=== PATIENT | male | born 1960 | race Caucasian/White ===

== ENCOUNTER → 2017-06-20 | Outpatient (CLI) | payer BC ==
--- NOTE | 2017-06-20 22:45 | MR ---
EXAMINATION TYPE: MR knee LT wo con DATE OF EXAM: 06/20/2017 COMPARISON: NONE HISTORY: Left knee pain TECHNIQUE: Multiplanar, multisequence imaging of the left knee is performed without IV contrast. FINDINGS: MEDIAL MENISCUS: Anterior and posterior horns are intact without tear. LATERAL MENISCUS: Minimal increased signal may be within the posterior portion lateral meniscus. Mild increased signals within the medial portion anterior horn lateral meniscus. Communication of the art icular surfaces is not identified. CRUCIATE LIGAMENTS: The anterior and posterior cruciate ligaments are intact and unremarkable. COLLATERAL LIGAMENTS: There is mild increased signal adjacent to the medial collateral ligament mimi tible with mild strain. No interruption is evident. Lateral collateral ligament is intact. EXTENSOR MECHANISM: Visualized quadriceps and patellar tendons are intact. EFFUSION: There is a small to moderate joint effusion. POPLITEAL CYST: No popliteal/goldberg cyst. TRICOMPARTMENT SPACES: Preserved CARTILAGE: Normal BONE MARROW SIGNAL: There is a tiny cyst within the posterior medial portion of the lateral tibial pl ateau compatible with a small subchondral cyst. Signal through the brain bone is otherwise unremarkab le. OTHER: The vastus medialis oblique and the sartorius muscle has increased signal. This appears to fo llow the fluid type signal. Severe strain of the muscles should be considered. No abnormal fluid lidya ection to suggest hematoma is evident. Additionally, the Gracilis or Sartorius muscle may have some s train as well. Remaining muscular signal is normal. Superficial soft tissue swelling is not identifie d. IMPRESSION: Vastus medialis oblique muscle and the Gracilis or Sartorius muscle with increased signal compatible with severe strain. 2. Moderate strain medial collateral ligament. 3. Moderate joint effusion.
== END | disposition home or self-care (01) ==
LOC: RADMRIMAIN 20:29
PROVIDERS: ATTEND Orthopaedic Surgery
DX: S83.412A Sprain of medial collateral ligament of left knee, initial encounter (principal); M25.462 Effusion, left knee

== ENCOUNTER 2018-10-17 15:03 | Emergency (ER) | payer BC ==
[2018-10-17 15:40] VITALS: BP 165/68; PULSE 60; RESP 18; TEMP 98.2
--- NOTE | 2018-10-17 15:58 | XR ---
EXAMINATION TYPE: XR chest 2V DATE OF EXAM: 10/17/2018 COMPARISON: 12/04/2013 HISTORY: Chest pain after injury. TECHNIQUE: Frontal and lateral views of the chest are obtained. FINDINGS: Low lung volumes are somewhat low. This accentuates the pulmonary vasculature. There is no focal air space opacity, pleural effusion, or pneumothorax seen. The cardiac silhouette size is wit hin normal limits. The osseous structures are intact. Mild multilevel degenerative changes of the t horacic spine are noted. IMPRESSION: No acute cardiopulmonary process.
[2018-10-17] MEDS ORDERED: IBUPROFEN 800 MG TAB PO STA (16:09)
--- NOTE | 2018-10-17 16:13 | ED ---
General Adult HPI - General Chief complaint: Chest Pain Stated complaint: chest injury Time Seen by Provider: 10/17/18 15:51 Source: patient, RN notes reviewed Mode of arrival: ambulatory Limitations: no limitations - History of Present Illness Initial comments: Patient is an 57-year-old male presented to the emergency room today with a chief complaint of injury to chest wall that occurred approximately 2 hours ago. 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 Patient states isn't seeing any bruising or swelling. He does admit to pain over the lateral anterior aspect of his ribs. Patient states that pain is worse with certain movements. Patient denies any other complaints or symptoms. Patient denies any recent fever , chills, shortness of breath, chest pain, back pain, abdominal pain, nausea or vomiting, numbness or tingling, headaches or visual changes, or any other complaints. - Related Data Home Medications Medication Instructions Recorded Confirmed Atenolol [Tenormin] 25 mg PO DAILY 07/09/14 08/17/16 Atorvastatin [Lipitor] 20 mg PO DAILY 07/09/14 08/17/16 Clopidogrel [Plavix] 75 mg PO DAILY 07/09/14 08/17/16 Hydrochlorothiazide [Hydrodiuril] 25 mg PO DAILY 07/09/14 08/17/16 Linagliptin [Tradjenta] 5 mg PO DAILY 07/09/14 08/17/16 Lisinopril [Prinivil] 20 mg PO BID 07/09/14 08/17/16 Ezetimibe [Zetia] 10 mg PO DAILY 08/17/16 08/17/16 Ibuprofen [Motrin] 200 - 400 mg PO Q6H PRN 08/17/16 08/17/16 Insulin Detemir [Levemir Flextouch] 18 units SQ DAILY 08/17/16 08/17/16 metFORMIN HCL [Glucophage] 1,000 mg PO BID 08/17/16 08/17/16 Previous Rx's Medication Instructions Recorded Hydrocodone/Acetaminophen [Rockledge 1 each PO Q6HR PRN #12 tab 10/17/18 5-325] Ibuprofen [Motrin] 800 mg PO Q6HR #30 tab 10/17/18 Allergies Allergy/AdvReac Type Severity Reaction Status Date / Time No Known Allergies Allergy Verified 10/17/18 15:39 Review of Systems ROS Statement: Those systems with pertinent positive or pertinent negative responses have been documented in the HPI. ROS Other: All systems not noted in ROS Statement are negative. Past Medical History Past Medical History: Chest Pain / Angina, Diabetes Mellitus, Hypertension Additional Past Medical History / Comment(s): palpitations History of Any Multi-Drug Resistant Organisms: None Reported Past Surgical History: Heart Catheterization With Stent Past Anesthesia/Blood Transfusion Reactions: No Reported Reaction Date of Last Stent Placement:: 2012 Past Psychological History: No Psychological Hx Reported Smoking Status: Never smoker Past Alcohol Use History: Occasional Past Drug Use History: None Reported - Past Family History Sister(s) Family Medical History: Cancer General Exam - General Exam Comments Initial Comments: General: The patient is awake and alert, and does not appear acutely ill. Neck: The neck is suppl. Cardiovascular: There is a regular rate and rhythm. No murmur, rub or gallop is appreciated. Respiratory: Lungs are clear to auscultation, respirations are non-labored, breath sounds are equal. No wheezes, stridor, rales, or rhonchi. Gastrointestinal: Soft nontender. No bruising or ecchymosis. Musculoskeletal: Normal ROM. Patient tender to palpation over the anterior lateral lower ribs on the left. No Step-off or deformity. Strength 5/5. Sensation intact. Radial pulses equal bilaterally 2+. Neurological: A&O x 3. CN II-XII intact, There are no obvious motor or sensory deficits. Coordination appears grossly intact. Speech is normal. Skin: Skin is warm and dry and no rashes or lesions are noted. Psychiatric: Cooperative, appropriate mood & affect, normal judgment. Limitations: no limitations Course Vital Signs 10/17/18 15:37 Temperature 98.2 F Pulse Rate 60 Respiratory 18 Rate Blood Pressure 165/68 O2 Sat by Pulse 99 Oximetry Medical Decision Making - Medical Decision Making Patient's vitals are stable. His x-ray reviewed and shows no acute abnormality. No obvious displaced fracture. Patient is point tender to the lateral aspect of the left lower ribs. Patient will be treated with anti- inflammatories, pain medication for his symptoms. Patient will be given incentive spirometer. Patient advised to follow-up family physician return here to the emergency room symptoms increase worsen. Disposition Clinical Impression: Rib fracture Disposition: HOME SELF-CARE Condition: Good Instructions: Rib Fracture (ED) Additional Instructions: Please brace area and need to cough, sneeze, or with certain movements as discussed. Please use incentive spirometer as discussed. Please use pain medications as prescribed. Follow-up the family doctor the next 2 days. Return to the emergency room symptoms increase or worsen. Prescriptions: Hydrocodone/Acetaminophen [Rockledge 5-325] 1 each PO Q6HR PRN #12 tab PRN Reason: Pain Ibuprofen [Motrin] 800 mg PO Q6HR #30 tab Is patient prescribed a controlled substance at d/c from ED?: No Referrals: Jose L Stafford MD [Primary Care Provider] - 1-2 days Time of Disposition: 16:12
== END 2018-10-17 16:30 | disposition home or self-care (01) ==
LOC: EC 15:03
DX: S22.32XA Fracture of one rib, left side, initial encounter for closed fracture (principal); I10 Essential (primary) hypertension; E11.9 Type 2 diabetes mellitus without complications; Z79.4 Long term (current) use of insulin; Z79.02 Long term (current) use of antithrombotics/antiplatelets; Z79.899 Other long term (current) drug therapy; Z86.79 Personal history of other diseases of the circulatory system; Z95.5 Presence of coronary angioplasty implant and graft; W20.8XXA Other cause of strike by thrown, projected or falling object, initial encounter; Y93.89 Activity, other specified; Y92.009 Unspecified place in unspecified non-institutional (private) residence as the place of occurrence of the external cause
CPT/HCPCS: 71046; 99283

== ENCOUNTER 2019-11-15 07:58 | Day surgery (SDC) | payer BC ==
[2019-11-12 15:50] VITALS: BMI 28.7
--- NOTE | 2019-11-14 22:51 | HP ---
HISTORY AND PHYSICAL DATE OF SURGERY: 11/15/2019 Amado Hook is a 58-year-old patient seen with progressive right shoulder pain. We discussed options for treatment. He elected to proceed with arthroscopy. Consent was obtained. PAST MEDICAL HISTORY: 1. Hypertension. 2. Hyperlipidemia. 3. Insulin-dependent diabetes. PAST SURGICAL HISTORY: Cardiac catheterization. DAILY MEDICATIONS: 1. Atenolol. 2. Atorvastatin. 3. Hydrochlorothiazide. 4. Lisinopril. 5. Plavix. 6. Insulin. ALLERGIES: NONE. SOCIAL HISTORY: He denies tobacco use. PHYSICAL EVALUATION OF THE RIGHT SHOULDER: Flexion 100 degrees, abduction 90 degrees, external rotation 20 degrees with weakness. There is tenderness along the anterolateral acromion and rotator cuff insertion site. Impingement sign is positive at 90 degrees. Drop-arm sign is positive. His distal neurovascular exam is intact. RADIOGRAPHS: Radiographs were obtained revealing a type 2 anterior acromion, cystic changes of the greater tuberosity along with calcific tendinitis. IMPRESSION: 1. Right shoulder impingement with rotator cuff tear. 2. Right shoulder acromioclavicular joint osteoarthritis. 3. Right shoulder calcific tendinitis. 4. Hypertension. 5. Hyperlipidemia. 6. Insulin-dependent diabetes. PLAN: Right shoulder arthroscopy, subacromial decompression, rotator cuff repair, Elio procedure, debridement. MMODL / IJN: [id number] /
[~2019-11-15 07:58] MED LIST: DEXAMETHASONE SOD PHOSPHATE 10 MG/ML 1 ML VIAL IV ONE; HYDROmorphone 0.5 MG/0.5 ML SYRINGE IVP PRN; LACTATED RINGERS 1,000 ML IV SCH; MIDAZOLAM 2 MG/2 ML VIAL IV PRN; ONDANSETRON 4 MG/2 ML VIAL IVP ONE; SCOPOLAMINE 1.5MG/72HR PATCH TRANSDERM ONE
[2019-11-15 08:28] LABS: Glucose,Whole Blood 176 mg/dL (75-99)
[2019-11-15] MEDS ORDERED: LIDOCAINE 1% 20 ML VIAL (10MG/ML) FOR IV START INTRADERMA ONE (08:35)
[2019-11-15] MEDS ORDERED: fentaNYL (PF) 50 MCG/ML 2 ML AMP IV ONE (08:44)
[2019-11-15] MEDS ORDERED: LIDOCAINE 1% INJ 10MG/ML (20 ML MDV) ONE (09:06)
[2019-11-15] MEDS ORDERED: LIDOCAINE 2%-EPI 1:100,000 20 ML VIAL ONE (09:06)
[2019-11-15] MEDS ORDERED: DEXAMETHASONE SOD PHOSPHATE 4 MG/ML 1 ML VIAL ONE (09:06)
[2019-11-15] MEDS ORDERED: PROPOFOL 10 MG/ML 20 ML VIAL IV ONE (09:06)
[2019-11-15] MEDS ORDERED: ROPIVACAINE 5 MG/ML 30 ML VIAL ONE (09:06)
[2019-11-15] MEDS ORDERED: SUCCINYLCHOLINE CHLORIDE 100 MG/5 ML SYR IV ONE (09:06)
[2019-11-15] MEDS ORDERED: fentaNYL (PF) 50 MCG/ML 2 ML AMP ONE (09:06)
[2019-11-15] MEDS ORDERED: ePHEDrine SULFATE/0.9% NACL/PF 50 MG/5 ML SYRINGE IV ONE (09:06)
[2019-11-15] MEDS ORDERED: LACTATED RINGERS 1,000 ML IV ONE (10:20)
[2019-11-15 10:59] VITALS: TEMP 97
--- NOTE | 2019-11-15 10:59 | P.OP ---
Date of Procedure: 11/15/19 Preoperative Diagnosis: Right shoulder impingement Postoperative Diagnosis: 1. Right shoulder rotator cuff tear 2. Right shoulder impingement 3. Right shoulder acromioclavicular joint osteoarthritis 4. Right shoulder partial long head biceps tear Procedure(s) Performed: 1. Right shoulder arthroscopic rotator cuff repair 2. Right shoulder arthroscopic subacromial decompression 3. Right shoulder arthroscopic Elio procedure 4. Right shoulder arthroscopic biceps tenotomy Implants: 24.75 Arthrex swivel lock anchors Anesthesia: GETA, regional (Interscalene block) Surgeon: Bishnu Ledezma Psychiatric Nurse #1: Hussein King Estimated Blood Loss (ml): 10 Pathology: none sent Condition: stable Disposition: PACU Indications for Procedure: 58-year-old patient seen with progressive right shoulder pain. After having t reatment options discussed, he elected to proceed with arthroscopy. Operative Findings: see description of procedure Description of Procedure: Patient underwent an interscalene block by department of anesthesia for postoperative pain management. The patient was then taken to the operative suite. The patient underwent a general anesthetic by the department of anesthesia. The patient was placed into a lateral position and secured. There was appropriate padding of the bony prominence. Right shoulder was then prepped and draped in normal sterile orthopedic fashion. We placed the extremity in 10 pounds of longitudinal traction. A posterior incision was now made for a posterior working portal site. The trocar and cannula were inserted into the glenohumeral joint. Arthroscopy was initiated. Spinal needle was now inserted anteriorly, to ascertain the anterior working portal site. An incision was now made in that area, a trocar was inserted followed by a probe. There was some partial tearing of the long head biceps tendon. There was some mild fraying of the superior labrum. There were mild grade 1 chondromalacia changes of the glenohumeral joint. I performed an arthroscopic biceps tenotomy. We again probed the labrum and it was stable. Instruments now removed from glenohumeral joint. Utilizing the posterior working portal site, the trocar and cannula were inserted into the subacromial space. Arthroscopy initiated. I made an incision 2 fingerbreadths lateral to the acromion. I introduced my trocar followed by my ArthroCare ablator. I now began ablating thick subacromial bursal tissue, which exposed the undersurface of the anterior acromion. There was diminished subacromial space. There was a very prominent anterior acromion. A motorized bur was introduced and a subacromial decompression was performed. I also excised some osteophytes off the inferior aspect of the distal clavicle. The AC joint was visualized and noted to be fairly arthritic. The motorized bur was introduced in the anterior portal site and a Elio procedure was performed without difficulty, decompressing the AC joint nicely. I turned my attention to the rotator cuff. There was an area anterior distal supraspinatus with obvious full-thickness perforation/rotator cuff tear. I debrided the margins irrigating down to stable tendon tissue the defect measured approximately 1 cm. I now probed more posteriorly and found the area of calcifications. That had eroded the rotator cuff tendon and I debrided that area. That was more posterior horn supraspinatus with about a 1.5 centimeters rotator cuff tear there. Both areas were thoroughly probed and I didn't appreciate additional calcifications. I abraded both footprints with a motorized bur. I passed 2 everted mattress sutures through good bites of rotator cuff tendon both anteriorly and superiorly with the assistance of Reza SRIVASTAVA. I now dressed the anterior tear. I punched the hole in the footprint area. I passed all 4 limbs of suture through a 4.75 Arthrex swivel lock anchor. I introduced the eyelit into the pre-punched hole. Reza SRIVASTAVA tension the sutures and then deployed the anchor with good fixation noted. I performed the same repair with Reza SRIVASTAVA's assistance to the posterior tear. All residual suture limbs were now clipped. We had good compression of the tendon along the entire footprint both anteriorly and posteriorly. I injected 1 ml Renyte intra-articular. Instruments now removed from the portal sites. All portal sites were approximated with nylon suture. Sterile dressings were applied followed by a shoulder immobilizer. Hussein SRIVASTAVA assisted in this complex case. The patient was awakened, transferred to a bed, and taken to recovery in stable condition.
[2019-11-15 11:15] VITALS: RESP 16
[2019-11-15 11:36] LABS: Glucose,Whole Blood 205 mg/dL (75-99)
[2019-11-15 12:31] VITALS: BP 132/74; PULSE 78
--- NOTE | 2019-11-19 14:35 | P.ANPRN ---
Procedure Note - Anesthesia - Nerve Block Performed Right Interscalene Single Time Out Performed: Yes Date of Procedure: 11/15/19 Procedure Start Time: 08:43 Procedure Stop Time: 08:50 Location of Patient: PreOp Indication: Acute Post-Operative Pain, Dx/Pain Location, Requested by Surgeon Sedation Type: Sedate with meaningful contact maintained Preparation: Sterile Prep Position: Supine Catheter: None Needle Types: Pajunk Needle Gauge: 21 Ultrasound used to visualize needle placement: Yes Ultrasound used to observe medication spread: Yes Injectate: 0.5% Ropivacaine (see comment for volume) (20ml) Blood Aspirated: No Pain Paresthesia on Injection Noted: No Resistance on Injection: Normal Image Stored and Saved: Yes Events: Uneventful and Well Tolerated
== END 2019-11-15 13:10 | disposition home or self-care (01) ==
LOC: OR 07:58
PROVIDERS: ATTEND Orthopaedic Surgery
DX: M75.121 Complete rotator cuff tear or rupture of right shoulder, not specified as traumatic (principal); M75.41 Impingement syndrome of right shoulder; M19.011 Primary osteoarthritis, right shoulder; M25.811 Other specified joint disorders, right shoulder; M94.211 Chondromalacia, right shoulder; M66.821 Spontaneous rupture of other tendons, right upper arm; M75.31 Calcific tendinitis of right shoulder; I10 Essential (primary) hypertension; I25.10 Atherosclerotic heart disease of native coronary artery without angina pectoris; E78.2 Mixed hyperlipidemia; E11.9 Type 2 diabetes mellitus without complications; Z79.4 Long term (current) use of insulin; Z79.02 Long term (current) use of antithrombotics/antiplatelets; Z79.899 Other long term (current) drug therapy; Z82.49 Family history of ischemic heart disease and other diseases of the circulatory system
CPT/HCPCS: 64415; 76942; 29827; 29826; 29824; C1713; Q4212; J2250; J1100 ×2; J0690; J2405; J2001; J3010; J2795; J0330; J2704

== ENCOUNTER 2020-03-04 20:26 | Observation (INO) | payer BC ==
[2020-03-04] MEDS ORDERED: SODIUM CHLORIDE 0.9% 1,000 ML IV STA (20:54)
--- NOTE | 2020-03-04 21:18 | ED ---
General Adult HPI - General Chief complaint: Shortness of Breath Stated complaint: Near syncope, dizziness Time Seen by Provider: 03/04/20 20:45 Source: patient, family Mode of arrival: wheelchair Limitations: no limitations - History of Present Illness Initial comments: Patient is a 59-year-old male, with history of diabetes, hypertension, presenting to emergency Department with complaints of a near syncopal episode as well as chest tightness that started today. 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 Patient initially thought his blood sugar might be low so he did eat a cupcake as well as drink orange juice and states he felt a little bit better. Patient also was having chest tightness. He states he felt like something was "sitting on his chest." Patient states he was able to go home and then decided to be seen in the ER since the chest tightness has not gone away. Patient states at this time his only complaint is a chest tightness. He denies any recent fever, chills. He denies being lightheaded, dizzy. He denies any abdominal pain, nausea, vomiting, diarrhea. He states he has not had a stress test in many years, he did have a heart cath performed in 2013. Patient has no other complaints at this time. Of note, patient had right shoulder surgery in October of this year. Upon arrival to the ER, his vital signs are stable. - Related Data Home Medications Medication Instructions Recorded Confirmed Clopidogrel [Plavix] 75 mg PO DAILY 07/09/14 11/15/19 Hydrochlorothiazide [Hydrodiuril] 25 mg PO DAILY 07/09/14 11/15/19 Lisinopril [Prinivil] 20 mg PO DAILY 07/09/14 11/15/19 Atenolol [Tenormin] 25 mg PO DAILY 10/17/18 11/15/19 Atorvastatin [Lipitor] 20 mg PO DAILY 10/17/18 11/15/19 Insulin NPH Hum/Reg Insulin Hm 20 unit SQ BID 10/17/18 11/15/19 [NovoLIN 70-30 100 UNIT/ML VIAL] Previous Rx's Medication Instructions Recorded HYDROcodone/APAP 7.5-325MG [Labadie 1 each PO Q6HR PRN #28 tab 11/15/19 7.5] Allergies Allergy/AdvReac Type Severity Reaction Status Date / Time No Known Allergies Allergy Verified 03/04/20 23:17 Review of Systems ROS Statement: Those systems with pertinent positive or pertinent negative responses have been documented in the HPI. ROS Other: All systems not noted in ROS Statement are negative. 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 HEAD: Atraumatic, normocephalic. EYES: Pupils equal round and reactive to light, extraocular movements intact, sclera anicteric, conjunctiva are normal. ENT: TMs normal, nares patent, oropharynx clear without exudates. Moist mucous membranes. NECK: Normal range of motion, supple without lymphadenopathy or JVD. LUNGS: Breath sounds clear to auscultation bilaterally and equal. No wheezes rales or rhonchi. HEART: Regular rate and rhythm without murmurs, rubs or gallops. ABDOMEN: Soft, nontender, normoactive bowel sounds. No guarding, no rebound. No masses appreciated. : Deferred EXTREMITIES: Normal range of motion, no pitting or edema. No clubbing or cyanosis. NEUROLOGICAL: Cranial nerves II through XII grossly intact. Normal speech, normal gait. Patient's strength is 5 out of 5 in upper and lower extremities. PSYCH: Normal mood, normal affect. SKIN: Warm, Dry, normal turgor, no rashes or lesions noted. Limitations: no limitations Course Vital Signs 03/04/20 03/04/20 03/04/20 20:27 20:45 20:59 Temperature 97.7 F Pulse Rate 76 Pulse Rate [ 72 [employer] Rec[employer]iter ] Respiratory 20 Rate Blood Pressure 189/89 157/72 O2 Sat by Pulse 97 Oximetry 03/04/20 03/04/20 03/04/20 21:00 21:26 22:00 Temperature Pulse Rate 68 73 74 Pulse Rate [ [employer] ] Respiratory 20 18 20 Rate Blood Pressure 157/72 150/74 142/67 O2 Sat by Pulse 98 98 96 Oximetry EKG Findings - EKG Comments: EKG Findings:: Normal sinus rhythm, normal ECG, no signs of acute ischemia. Ventricular rate 75, P1 38, QTC 404. Medical Decision Making - Medical Decision Making Patient is a 59-year-old male here after feeling lightheaded and chest pressure prior to arrival. Patient's vital signs are stable. EKG shows no signs of acute ischemia. Workup today is normal including normal troponin, negative d- dimer. Chest x-ray shows no acute findings. Patient has been comfortable in the ER. Urine is pending. I discussed the patient given his symptoms I would like to admit him to observation for cardiac consult and continue troponins. Patient is in agreement with this. Patient was accepted by Dr. Monteiro. Covid testing is negative. - Lab Data Result diagrams: 03/04/20 21:00 03/04/20 21:00 Lab Results 03/04/20 03/04/20 03/04/20 Range/Units 21:00 21:00 21:00 WBC 7.9 (3.8-10.6) k/uL RBC 4.62 (4.30-5.90) m/uL Hgb 14.6 (13.0-17.5) gm/dL Hct 43.4 (39.0-53.0) % MCV 93.8 (80.0-100.0) fL MCH 31.7 (25.0-35.0) pg MCHC 33.8 (31.0-37.0) g/dL RDW 13.0 (11.5-15.5) % Plt Count 226 (150-450) k/uL Neutrophils % 67 % Lymphocytes % 23 % Monocytes % 6 % Eosinophils % 1 % Basophils % 1 % Neutrophils # 5.3 (1.3-7.7) k/uL Lymphocytes # 1.8 (1.0-4.8) k/uL Monocytes # 0.5 (0-1.0) k/uL Eosinophils # 0.1 (0-0.7) k/uL Basophils # 0.1 (0-0.2) k/uL PT 10.0 (9.0-12.0) sec INR 1.0 (<1.2) APTT 23.7 (22.0-30.0) sec D-Dimer 0.30 (<0.60) mg/L FEU Sodium 139 (137-145) mmol/L Potassium 4.1 (3.5-5.1) mmol/L Chloride 100 (98-107) mmol/L Carbon Dioxide 27 (22-30) mmol/L Anion Gap 12 mmol/L BUN 26 H (9-20) mg/dL Creatinine 1.00 (0.66-1.25) mg/dL Est GFR (CKD-EPI)AfAm >90 (>60 ml/min/1.73 sqM) Est GFR (CKD-EPI)NonAf 82 (>60 ml/min/1.73 sqM) Glucose 248 H (74-99) mg/dL Calcium 10.6 H (8.4-10.2) mg/dL Magnesium 1.2 L (1.6-2.3) mg/dL Total Bilirubin 0.7 (0.2-1.3) mg/dL AST 48 (17-59) U/L ALT 37 (4-49) U/L Alkaline Phosphatase 130 H (38-126) U/L Troponin I (0.000-0.034) ng/mL Total Protein 8.0 (6.3-8.2) g/dL Albumin 4.8 (3.5-5.0) g/dL Coronavirus (PCR) (Not Detectd) 03/04/20 03/04/20 Range/Units 21:00 22:35 WBC (3.8-10.6) k/uL RBC (4.30-5.90) m/uL Hgb (13.0-17.5) gm/dL Hct (39.0-53.0) % MCV (80.0-100.0) fL MCH (25.0-35.0) pg MCHC (31.0-37.0) g/dL RDW (11.5-15.5) % Plt Count (150-450) k/uL Neutrophils % % Lymphocytes % % Monocytes % % Eosinophils % % Basophils % % Neutrophils # (1.3-7.7) k/uL Lymphocytes # (1.0-4.8) k/uL Monocytes # (0-1.0) k/uL Eosinophils # (0-0.7) k/uL Basophils # (0-0.2) k/uL PT (9.0-12.0) sec INR (<1.2) APTT (22.0-30.0) sec D-Dimer (<0.60) mg/L FEU Sodium (137-145) mmol/L Potassium (3.5-5.1) mmol/L Chloride (98-107) mmol/L Carbon Dioxide (22-30) mmol/L Anion Gap mmol/L BUN (9-20) mg/dL Creatinine (0.66-1.25) mg/dL Est GFR (CKD-EPI)AfAm (>60 ml/min/1.73 sqM) Est GFR (CKD-EPI)NonAf (>60 ml/min/1.73 sqM) Glucose (74-99) mg/dL Calcium (8.4-10.2) mg/dL Magnesium (1.6-2.3) mg/dL Total Bilirubin (0.2-1.3) mg/dL AST (17-59) U/L ALT (4-49) U/L Alkaline Phosphatase (38-126) U/L Troponin I <0.012 (0.000-0.034) ng/mL Total Protein (6.3-8.2) g/dL Albumin (3.5-5.0) g/dL Coronavirus (PCR) Not Detected (Not Detectd) Disposition Clinical Impression: Chest pain, Light headed Disposition: ADMITTED IP TO THIS [facility] Condition: Stable Is patient prescribed a controlled substance at d/c from ED?: No Referrals: Jose L Stafford MD [Primary Care Provider] - 1-2 days Decision Date: 03/04/20 Decision Time: 22:50
[2020-03-04 21:21] LABS: Basophils # (A) 0.1 k/uL (0-0.2); Basophils % (A) 1 %; Eosinophils # (A) 0.1 k/uL (0-0.7); Eosinophils % (A) 1 %; HCT 43.4 % (39.0-53.0); HGB 14.6 gm/dL (13.0-17.5); Lymphocytes # (A) 1.8 k/uL (1.0-4.8); Lymphocytes % (A) 23 %; MCH 31.7 pg (25.0-35.0); MCHC 33.8 g/dL (31.0-37.0); MCV 93.8 fL (80.0-100.0); Mean Platelet Volume 7.3; Monocytes # (A) 0.5 k/uL (0-1.0); Monocytes % (A) 6 %; Neutrophils # (A) 5.3 k/uL (1.3-7.7); Neutrophils % (A) 67 %; Platelet Count 226 k/uL (150-450); RBC 4.62 m/uL (4.30-5.90); WBC 7.9 k/uL (3.8-10.6)
[2020-03-04 21:33] LABS: ALT 37 U/L (4-49); AST 48 U/L (17-59); African American GFR (CKD) >90 (>60 ml/min/1.73 sqM); Albumin 4.8 g/dL (3.5-5.0); Alkaline Phosphatase 130 U/L (38-126); Anion Gap 12 mmol/L; Blood Urea Nitrogen 26 mg/dL (9-20); Calcium 10.6 mg/dL (8.4-10.2); Carbon Dioxide 27 mmol/L (22-30); Chloride 100 mmol/L (98-107); Glucose 248 mg/dL (74-99); Magnesium 1.2 mg/dL (1.6-2.3); Non-African American GFR(CKD) 82 (>60 ml/min/1.73 sqM); Potassium 4.1 mmol/L (3.5-5.1); Sodium 139 mmol/L (137-145); Total Bilirubin 0.7 mg/dL (0.2-1.3)
--- NOTE | 2020-03-04 21:33 | XR ---
EXAMINATION TYPE: XR chest 2V DATE OF EXAM: 03/04/2020 COMPARISON: 10/17/2018 TECHNIQUE: PA and lateral views submitted. HISTORY: Chest pain FINDINGS: The lungs are clear and there is no pneumothorax, pleural effusion, or focal pneumonia. Stable asym metric prominence left anterior margin first rib. No overt failure. Limited inspiration. Arthropathy of the shoulders. Degenerative change of the spine. Somewhat coarsened central interstitium. IMPRESSION: 1. Coarsened central interstitium can be associated with reduced inspiration rather than viral or int erstitial pneumonitis correlate clinically..
[2020-03-04 21:46] LABS: D-Dimer 0.3 mg/L FEU (<0.60); Partial Thromboplastin Time 23.7 sec (22.0-30.0)
[2020-03-04] MEDS ORDERED: NITROGLYCERIN SL TABS 0.4 MG TAB SUBLINGUAL PRN (22:47)
--- NOTE | 2020-03-04 23:27 | P.HPIM ---
History of Present Illness H&P Date: 03/04/20 The patient is a 59-year-old male with a PMH of CAD status post 3 stents, type II DM, hypertension, and hyperlipidemia presented to the ED with complaints of sudden onset of chest discomfort and lightheadedness. The patient reports that his symptoms started roughly 2-1/2 hours prior to presentation, while he was working, not doing anything particularly exertional. He describes an 8 out of 10 substernal chest discomfort, nonradiating, constant, with no alleviating or exacerbating features, with associated palpitations. He initially thought that his symptoms were due to a low blood glucose, and proceeded to eat a cupcake and consume a glass orange juice, which did not alleviate his symptoms, at which time he started to come to the ED. He denied associated shortness of breath, nausea, vomiting, or diaphoresis. He reports this is his somewhat different from his previous MIs. He notes that he has been having intermittent palpitations for the past 1 month, though did not think much of it and did not seek any medical attention. Reports that he follows with certified real estate appraiser, Dr. Matthews at his clinic. He also denied fever, chills, abdominal pain, diarrhea, visual disturbances, weakness, numbness, or headaches. At time of interview, he reported that his pain had improved to a 2 out of 10. Upon presentation to the ED, the patient's BP was 189/89, pulse 76, RR 20, temp 97.7, and SpO2 97% on room air. Laboratory evaluation had revealed a 60 count of 7.9, hemoglobin 14.6, platelets 226, sodium 139, potassium 4.1, BUN 26, creatinine 1.00, glucose 248, troponin less than 0.012, and a magnesium of 1.2. EKG had revealed a normal sinus rhythm at [address]/T-wave changes noted. Chest x-ray was unremarkable. Review of Systems Pertinent positives and negatives as discussed in HPI, a complete review of systems was performed and all other systems are negative. 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 Past Anesthesia/Blood Transfusion Reactions: No Reported Reaction Date of Last Stent Placement:: 2012 Past Psychological History: No Psychological Hx Reported Smoking Status: Never smoker Past Alcohol Use History: None Reported Past Drug Use History: None Reported - Past Family History Sister(s) Family Medical History: Cancer Medications and Allergies Home Medications Medication Instructions Recorded Confirmed Type Clopidogrel [Plavix] 75 mg PO DAILY 07/09/14 03/04/20 History Hydrochlorothiazide [Hydrodiuril] 25 mg PO DAILY 07/09/14 03/04/20 History Lisinopril [Prinivil] 20 mg PO DAILY 07/09/14 03/04/20 History Atenolol [Tenormin] 25 mg PO DAILY 10/17/18 03/04/20 History Atorvastatin [Lipitor] 20 mg PO DAILY 10/17/18 03/04/20 History Insulin Aspart Protam & Aspart 20 unit SQ BID 03/04/20 03/04/20 History [NovoLOG MIX 70-30 Flexpen] Allergies Allergy/AdvReac Type Severity Reaction Status Date / Time No Known Allergies Allergy Verified 03/04/20 23:17 Physical Exam Vitals: Vital Signs Temp Pulse Pulse Resp BP Pulse Ox 03/04/20 22:00 74 20 142/67 96 03/04/20 21:26 73 18 150/74 98 03/04/20 21:00 68 20 157/72 98 03/04/20 20:59 157/72 03/04/20 20:45 72 03/04/20 20:27 97.7 F 76 20 189/89 97 Intake and Output 03/04/20 03/04/20 03/05/20 14:59 22:59 06:59 Other: Weight 77.111 kg General: non toxic, no distress, appears at stated age, overweight Derm: no unusual rashes/lesions no unusual ecchymoses, warm, dry Head: atraumatic, normocephalic, symmetric Eyes: EOMI, no lid lag, anicteric sclera, pupils equal round reactive to light ENT: Nose and ears atraumatic, no thrush, no pharyngeal erythema Neck: No thyromegaly, no cervical lymphadenopathy, trachea midline, supple Mouth: no lip lesion, mucus membranes moist Cardiovascular: S1S2 reg, no murmur, positive posterior tibial pulse bilateral, no edema, capillary refill less than 2 seconds Lungs: CTA bilateral, no rhonchi, no rales , no accessory muscle use Abdominal: soft, nontender to palpation, no guarding, no appreciable organomegaly, normal bowel sounds Ext: no gross muscle atrophy, muscle strength 5 out of 5 in all 4 extremities grossly, no contractures, Neuro: CN II-XI grossly intact, light touch intact all 4 extremities, finger to nose within normal limits, Psych: Alert, oriented, appropriate affect Results CBC & Chem 7: 03/04/20 21:00 03/04/20 21:00 Labs: Abnormal Lab Results - Last 24 Hours (Table) 03/04/20 Range/Units 21:00 BUN 26 H (9-20) mg/dL Glucose 248 H (74-99) mg/dL Calcium 10.6 H (8.4-10.2) mg/dL Magnesium 1.2 L (1.6-2.3) mg/dL Alkaline Phosphatase 130 H (38-126) U/L Assessment and Plan Plan: Chest pain, rule out ACS -Cardiac monitoring -Cardiology consult -Trend troponin -Continue with aspirin -Echocardiogram Type II DM with hyperglycemia -Insulin sliding scale and blood glucose monitoring Hypomagnesemia -Replace and monitor Hypertension, hyperlipidemia -Continue with home meds DVT prophylaxis -Heparin subq The patient is admitted with an anticipated less than 2 midnight stay for evaluation of chest pain CODE STATUS: Full Code Discussed with: Patient Anticipated discharge date: 1-[address]: Home A total of 35 minutes was spent on the care of this complex patient more than 50% of the time was spent in counseling and care coordination.
[2020-03-05] MEDS: MAGNESIUM SULFATE-D5W PMX 1 GM in DEXTROSE/WATER 1 100ML.BAG IVPB SCH ×5 (00:43→11:23)
[2020-03-05 00:44] LABS: Glucose,Whole Blood 189 mg/dL (75-99)
[2020-03-05] MEDS: HEPARIN SODIUM,PORCINE 5,000 UNIT/ML 1 ML VIAL SQ SCH ×4 (00:46→22:38)
[2020-03-05 03:47] LABS: Cholesterol 168 mg/dL (<200); HDL Cholesterol 49 mg/dL (40-60); LDL Cholesterol,Calculated 93 mg/dL (0-99); Triglycerides 131 mg/dL (<150)
[2020-03-05 05:13] LABS: African American GFR (CKD) >90 (>60 ml/min/1.73 sqM); Anion Gap 7 mmol/L; Blood Urea Nitrogen 20 mg/dL (9-20); Calcium 9.5 mg/dL (8.4-10.2); Carbon Dioxide 28 mmol/L (22-30); Chloride 104 mmol/L (98-107); Glucose 160 mg/dL (74-99); Magnesium 1.5 mg/dL (1.6-2.3); Non-African American GFR(CKD) >90 (>60 ml/min/1.73 sqM); Potassium 3.5 mmol/L (3.5-5.1); Sodium 139 mmol/L (137-145)
[2020-03-05 06:15] LABS: Glucose,Whole Blood 176 mg/dL (75-99)
[2020-03-05 06:28] LABS: Appearance,Urine Clear (Clear); Bilirubin,Urine Negative (Negative); Blood,Urine Negative (Negative); Color,Urine Light Yellow; Glucose,Urine (UA) Negative (Negative); Ketones,Urine Negative (Negative); Leukocyte Esterase,Urine Negative (Negative); Nitrite,Urine Negative (Negative); Protein,Urine Negative (Negative); Specific Gravity,Urine 1.014 (1.001-1.035); Urobilinogen,Urine <2.0 mg/dL (<2.0)
[2020-03-05] MEDS ORDERED: ASPIRIN 325 MG TAB PO SCH (09:00)
[2020-03-05] MEDS ORDERED: LISINOPRIL 20 MG TAB PO SCH (09:00)
[2020-03-05] MEDS: ATENOLOL 50 MG TAB PO SCH (09:32)
[2020-03-05] MEDS: ATORVASTATIN 20 MG TAB PO SCH (09:32)
[2020-03-05] MEDS: HYDROCHLOROTHIAZIDE 25 MG TAB PO SCH (09:33)
[2020-03-05] MEDS: CLOPIDOGREL 75 MG TAB PO SCH (09:33)
[2020-03-05] MEDS ORDERED: LISINOPRIL 20 MG TAB PO ONE (10:15)
--- NOTE | 2020-03-05 10:20 | P.CRDCN ---
History of Present Illness Consult date: 03/05/20 Requesting physician: Celi Monteiro Consult reason: sycope, chest pain Chief complaint: Dizziness and chest pressure History of present illness: This is a 59-year-old gentleman who used to see Dr. MORGAN Hodge in the office, he follows now with Dr. Pinzon. Patient has a history of coronary artery disease with prior RCA and LAD stenting, most recent cardiac catheterization was performed in 2013, prior stented areas did not reveal any significant obstructive disease, circumflex was okay, 40% lesion noted in the OM and 40-50% in the diagonal and medical therapy was advised at that time. Patient also has a history of diabetes, hypertension, hyperlipidemia, family history of premature coronary artery disease. Patient presented to the hospital with symptoms of dizziness, he states that he was operating a high low, became quite dizzy and was experiencing tightness in his chest. He states that when he stood up off of the high low he almost passed out. Chest x-ray on presentation here showed some coarse central interstitium, no acute changes. EKG showed normal sinus rhythm with no acute changes. Magnesium on admission 1.2, 1.5 this morning, troponins negative 2. White blood cell count 7.9, hemoglobin 14.6, platelet count 226. D-dimer 0.3. Sodium 139, potassium 3.5, BUN 20, creatinine 0.86. Blood pressure 177/66, 97% on room air. Patient recently underwent right shoulder repair in October 2019. He also states that his most recent cardiac catheterization was performed at [facility] approximately a year ago, he was told to not have any significantly obstructive disease at that time. Patient was seen and examined this morning by Dr. Medrano. We will increase his lisinopril to 40 mg, give him a dose now, given 40 mg again in the morning tomorrow we will schedule the patient for a Persantine Cardiolite stress test tomorrow once his blood pressure is optimized. 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 Past Anesthesia/Blood Transfusion Reactions: No Reported Reaction Date of Last Stent Placement:: 2012 Past Psychological History: No Psychological Hx Reported Smoking Status: Never smoker Past Alcohol Use History: None Reported Past Drug Use History: None Reported - Past Family History Sister(s) Family Medical History: Cancer Medications and Allergies Home Medications Medication Instructions Recorded Confirmed Type Clopidogrel [Plavix] 75 mg PO DAILY 07/09/14 03/04/20 History Hydrochlorothiazide [Hydrodiuril] 25 mg PO DAILY 07/09/14 03/04/20 History Lisinopril [Prinivil] 20 mg PO DAILY 07/09/14 03/04/20 History Atenolol [Tenormin] 25 mg PO DAILY 10/17/18 03/04/20 History Atorvastatin [Lipitor] 20 mg PO DAILY 10/17/18 03/04/20 History Insulin Aspart Protam & Aspart 20 unit SQ BID 03/04/20 03/04/20 History [NovoLOG MIX 70-30 Flexpen] Allergies Allergy/AdvReac Type Severity Reaction Status Date / Time No Known Allergies Allergy Verified 03/04/20 23:17 Physical Exam Vitals: Vital Signs Temp Pulse Pulse Resp BP BP Pulse Ox 03/05/20 08:00 98.1 F 67 16 177/79 97 03/05/20 04:00 97.9 F 60 12 131/60 96 03/05/20 00:00 16 164/73 03/04/20 23:18 98.1 F 66 16 172/76 97 03/04/20 23:00 97.8 F 81 20 161/80 97 03/04/20 22:00 74 20 142/67 96 03/04/20 21:26 73 18 150/74 98 03/04/20 21:00 68 20 157/72 98 03/04/20 20:59 157/72 03/04/20 20:45 72 03/04/20 20:27 97.7 F 76 20 189/89 97 Intake and Output 03/04/20 03/05/20 03/05/20 22:59 06:59 14:59 Intake Total 100 Balance 100 Intake: Intake, IV Titration 100 Amount Magnesium Sulfate-D5w Pmx 100 1 gm In Dextrose/Water 1 100ml.bag @ 100 mls/hr IVPB Q1H [facility] Rx#: [id number] Other: # Voids 1 Weight 77.111 kg 80.5 kg PHYSICAL EXAMINATION: GENERAL: 59-year-old gentleman in no acute distress at the time of examination HEENT: Head is atraumatic, normocephalic. Pupils equal, round. Sclera anicteric. Conjunctiva are clear. Mucous membranes of the mouth are moist. Neck is supple. There is no elevated jugular venous pressure. No carotid bruit is heard. HEART EXAMINATION: Heart S1, S2 normal. No murmur or gallop heard. CHEST EXAMINATION: Lungs are clear to auscultation and precussion. No chest wall tenderness is noted on palpation or with deep breathing. ABDOMEN: Soft, nontender. Bowel sounds are heard. No organomegaly noted. EXTREMITIES: 2+ peripheral pulses with no evidence of peripheral edema and no calf tenderness noted. NEUROLOGIC patient is awake, alert and oriented 3 . . Results 03/04/20 21:00 03/05/20 02:01 Cardiac Enzymes 03/04/20 03/04/20 03/05/20 Range/Units 21:00 21:00 02:01 AST 48 (17-59) U/L Troponin I <0.012 <0.012 (0.000-0.034) ng/mL 03/05/20 Range/Units 08:29 AST (17-59) U/L Troponin I 0.012 (0.000-0.034) ng/mL Coagulation 03/04/20 Range/Units 21:00 PT 10.0 (9.0-12.0) sec APTT 23.7 (22.0-30.0) sec Lipids 03/05/20 Range/Units 02:01 Triglycerides 131 (<150) mg/dL Cholesterol 168 (<200) mg/dL HDL Cholesterol 49 (40-60) mg/dL CBC 03/04/20 Range/Units 21:00 WBC 7.9 (3.8-10.6) k/uL RBC 4.62 (4.30-5.90) m/uL Hgb 14.6 (13.0-17.5) gm/dL Hct 43.4 (39.0-53.0) % Plt Count 226 (150-450) k/uL Comprehensive Metabolic Panel 03/04/20 03/05/20 Range/Units 21:00 02:01 Sodium 139 139 (137-145) mmol/L Potassium 4.1 3.5 (3.5-5.1) mmol/L Chloride 100 104 (98-107) mmol/L Carbon Dioxide 27 28 (22-30) mmol/L BUN 26 H 20 (9-20) mg/dL Creatinine 1.00 0.86 (0.66-1.25) mg/dL Glucose 248 H 160 H (74-99) mg/dL Calcium 10.6 H 9.5 (8.4-10.2) mg/dL AST 48 (17-59) U/L ALT 37 (4-49) U/L Alkaline Phosphatase 130 H (38-126) U/L Total Protein 8.0 (6.3-8.2) g/dL Albumin 4.8 (3.5-5.0) g/dL Current Medications Generic Name Dose Route Start Last Admin Trade Name Freq PRN Reason Stop Dose Admin Aspirin 81 mg 03/06/20 09:00 Aspirin PO DAILY [facility] Atenolol 25 mg 03/05/20 09:00 03/05/20 09:32 Tenormin PO 25 mg DAILY [facility] Administration Atorvastatin Calcium 20 mg 03/05/20 09:00 03/05/20 09:32 Lipitor PO 20 mg DAILY [facility] Administration Clopidogrel Bisulfate 75 mg 03/05/20 09:00 03/05/20 09:33 Plavix PO 75 mg DAILY [facility] Administration Heparin Sodium (Porcine) 5,000 unit 03/05/20 00:00 03/05/20 09:32 Heparin SQ 5,000 unit Q8HR [facility] Administration Hydrochlorothiazide 25 mg 03/05/20 09:00 03/05/20 09:33 Hydrodiuril PO 25 mg DAILY [facility] Administration Magnesium Sulfate/Dextrose 1 100 mls @ 100 mls/hr 03/05/20 10:00 gm/ IV Solution IVPB 03/05/20 11:59 Q1H [facility] Lisinopril 20 mg 03/05/20 09:00 03/05/20 09:33 Zestril PO 20 mg DAILY [facility] Administration Nitroglycerin 0.4 mg 03/04/20 22:47 Nitrostat SUBLINGUAL Q5M PRN Chest Pain Intake and Output 03/04/20 03/05/20 03/05/20 22:59 06:59 14:59 Intake Total 100 Balance 100 Intake: Intake, IV Titration 100 Amount Magnesium Sulfate-D5w Pmx 100 1 gm In Dextrose/Water 1 100ml.bag @ 100 mls/hr IVPB Q1H [facility] Rx#: [id number] Other: # Voids 1 Weight 77.111 kg 80.5 kg 03/04/20 21:00 03/05/20 02:01 EKG Interpretations (text) EKG shows normal sinus rhythm with no acute changes Assessment and Plan Plan: Assessment and plan #1 symptoms of dizziness and near syncope, possibly related to accelerated hypertension #2 symptoms of chest tightness, troponins are negative 2. EKG shows normal sinus rhythm with no acute changes. #3 coronary artery disease history with prior RCA and LAD stenting #4 diabetes #5 accelerated hypertension in a patient with history of hypertension #6 hyperlipidemia #7 hypomagnesemia Plan We will increase his dose of lisinopril to 40 mg daily, giving an additional 20 now. Optimize his blood pressure and schedule the patient for a Persantine stress test tomorrow. We will also replace the patient's potassium. Obtain a cath report from [facility] on [place] performed approximately a year ago. Obtain an echocardiogram with Doppler study and orthostatic heart rate and blood pressure every shift. Further recommendations to follow. DNP note has been reviewed, I agree with a documented findings and plan of care. Patient was seen and examined.
--- NOTE | 2020-03-05 10:57 | ECHOF ---
Referral Reason:chest pain MEASUREMENTS -------- HEIGHT: 167.6 cm WEIGHT: 80.3 kg BP: 131/60 RVIDd: 3.0 cm (< 3.3) IVSd: 1.3 cm (0.6 - 1.1) LVIDd: 3.7 cm (3.9 - 5.3) LVPWd: 1.3 cm (0.6 - 1.1) IVSs: 1.7 cm LVIDs: 2.7 cm LVPWs: 1.8 cm LA Diam: 3.9 cm (2.7 - 3.8) LAESV Index (A-L): 25.00 ml/m Ao Diam: 3.5 cm (2.0 - 3.7) AV Cusp: 2.3 cm (1.5 - 2.6) MV EXCURSION: 18.395 mm (> 18.000) MV EF SLOPE: 100 mm/s (70 - 150) EPSS: 0.6 cm MV E Woody: 1.04 m/s MV DecT: 157 ms MV A Woody: 0.75 m/s MV E/A Ratio: 1.38 FINDINGS -------- Sinus rhythm. This was a technically adequate study. The left ventricular size is normal. There is mild concentric left ventricular hypertrophy. Overa ll left ventricular systolic function is normal with, an EF between 60 - 65 %. The right ventricle is normal in size. Normal LA size by volume 22+/-6 ml/m2. The right atrium is normal in size. Interatrial and interventricular septum intact. The aortic valve is trileaflet and appears structurally normal. The mitral valve is normal. The tricuspid valve appears structurally normal. Trace/mild (physiologic) pulmonic regurgitation. The aortic root size is normal. Normal inferior vena cava with normal inspiratory collapse consistent with estimated right atrial pre ssure of 5 mmHg. There is no pericardial effusion. CONCLUSIONS -------- 1. Sinus rhythm. 2. This was a technically adequate study. 3. The left ventricular size is normal. 4. There is mild concentric left ventricular hypertrophy. 5. Overall left ventricular systolic function is normal with, an EF between 60 - 65 %. 6. The right ventricle is normal in size. 7. Normal LA size by volume 22+/-6 ml/m2. 8. The right atrium is normal in size. 9. Interatrial and interventricular septum intact. 10. The aortic valve is trileaflet and appears structurally normal. 11. The mitral valve is normal. 12. The tricuspid valve appears structurally normal. 13. Trace/mild (physiologic) pulmonic regurgitation. 14. The aortic root size is normal. 15. Normal inferior vena cava with normal inspiratory collapse consistent with estimated right atrial pressure of 5 mmHg. 16. There is no pericardial effusion. DIRECTOR OF COMPENSATION: Zoë Shrestha RDCS
[2020-03-05 11:22] LABS: Glucose,Whole Blood 172 mg/dL (75-99)
--- NOTE | 2020-03-05 15:18 | P.PN ---
Subjective Progress Note Date: 03/05/20 Principal diagnosis: Chest pain Patient was seen and examined. No acute events overnight. Patient reports resolution of his chest pain. He denies any shortness of breath or pal pitations. No nausea or vomiting. No fever or chills. Inquiring if stress test can be performed in the outpatient setting. Objective - Vital Signs Vital signs: Vital Signs Temp 97.8 F 03/05/20 11:51 Pulse 54 L 03/05/20 11:51 Resp 16 03/05/20 11:51 BP 139/67 03/05/20 11:51 Pulse Ox 97 03/05/20 11:51 Intake & Output 03/04/20 03/05/20 03/05/20 18:59 06:59 18:59 Intake Total 100 560 Balance 100 560 Weight 80.5 kg Intake: Intake, IV Titration 100 200 Amount Magnesium Sulfate-D5w Pmx 100 1 gm In Dextrose/Water 1 100ml.bag @ 100 mls/hr IVPB Q1H [facility] Rx#: [id number] Magnesium Sulfate-D5w Pmx 200 1 gm In Dextrose/Water 1 100ml.bag @ 100 mls/hr IVPB Q1H [facility] Rx#: [id number] Oral 360 Other: # Voids 1 - Exam General: [non toxic], [no distress], [appears at stated age] Derm: [warm], [dry] Head: [atraumatic], [normocephalic], [symmetric] Eyes: [EOMI], [no lid lag], [anicteric sclera] Mouth: [no lip lesion], [mucus membranes moist] Cardiovascular: [S1S2 reg], [no murmur], [positive DP pulse bilateral], Lungs: [CTA bilateral], [no rhonchi, no rales] , [no accessory muscle use] Abdominal: [soft], [ nontender to palpation], [no guarding], [no appreciable organomegaly] Ext: [no gross muscle atrophy], [no edema], [no contractures] Neuro: [no focal neuro deficits] Psych: [Alert], [oriented], [appropriate affect] - Labs CBC & Chem 7: 03/04/20 21:00 03/05/20 02:01 Labs: Abnormal Lab Results - Last 24 Hours (Table) 03/04/20 03/05/2003/05/20 Range/Units 21:00 00:43 02:01 BUN 26 H (9-20) mg/dL Glucose 248 H 160 H (74-99) mg/dL POC Glucose (mg/dL) 189 H (75-99) mg/dL Calcium 10.6 H (8.4-10.2) mg/dL Magnesium 1.2 L 1.5 L (1.6-2.3) mg/dL Alkaline Phosphatase 130 H (38-126) U/L 03/05/20 03/05/20 Range/Units 06:14 11:21 BUN (9-20) mg/dL Glucose (74-99) mg/dL POC Glucose (mg/dL) 176 H 172 H (75-99) mg/dL Calcium (8.4-10.2) mg/dL Magnesium (1.6-2.3) mg/dL Alkaline Phosphatase (38-126) U/L Assessment and Plan Assessment: Chest pain, rule out ACS -Cardiac monitoring -Cardiology consult, plans for stress test tomorrow -Troponins less than 0.0123 with EKG showing normal sinus rhythm -Continue with aspirin and beta kathrine along with Plavix -Echocardiogram shows EF 60-65% with mild concentric LVH Type II DM with hyperglycemia -Insulin sliding scale and blood glucose monitoring along with hypoglycemic precautions Hypomagnesemia -Replace and monitor Hypertension, hyperlipidemia -Continue with home meds DVT prophylaxis -Heparin subq [Patient admitted for chest pain. Plans for stress test tomorrow. Likely DC in 1-2 days.]
[2020-03-05 16:21] LABS: Glucose,Whole Blood 207 mg/dL (75-99)
[2020-03-05] MEDS: INSULIN ASPART (NovoLOG) 100 UNIT/ML VIAL SQ SCH ×2 (17:27→20:24)
[2020-03-05 20:09] LABS: Glucose,Whole Blood 201 mg/dL (75-99)
[2020-03-06] MEDS ORDERED: DIPYRIDAMOLE 46 MG in SODIUM CHLORIDE 0.9% 40.8 ML IV ONE (06:00)
[2020-03-06 06:08] LABS: Glucose,Whole Blood 170 mg/dL (75-99)
[2020-03-06] MEDS: INSULIN ASPART (NovoLOG) 100 UNIT/ML VIAL SQ SCH (06:30)
[2020-03-06 07:45] VITALS: BP 147/72; PULSE 50; RESP 16; TEMP 97.8
[2020-03-06] MEDS ORDERED: LISINOPRIL 20 MG TAB PO SCH (09:00)
[2020-03-06] MEDS ORDERED: ASPIRIN 81 MG PO SCH (09:00)
[2020-03-06] MEDS ORDERED: AMINOPHYLLINE 500 MG/20 ML VIAL IV ONE (09:55)
[2020-03-06] MEDS ORDERED: AMINOPHYLLINE 500 MG/20 ML VIAL IV PRN (10:00)
[2020-03-06] MEDS ORDERED: SODIUM CHLORIDE 0.9% IV ONE (10:00)
[2020-03-06] MEDS ORDERED: DIPYRIDAMOLE IV ONE (10:00)
[2020-03-06] MEDS ORDERED: CAFFEINE CITRATE 60 MG/3 ML VIAL IV PRN (10:00)
--- NOTE | 2020-03-06 11:00 | NM ---
EXAMINATION TYPE: NM stress persantine cardiolit DATE OF EXAM: 03/06/2020 COMPARISON: NONE HISTORY: Precordial chest pain and abnormal EKG TECHNIQUE: After the intravenous administration of 9.8 mCi Tc 99m Sestamibi - Cardiolite resting SPE CT images acquired 60 minutes post injection. The patient received 0.4mg Lexiscan, 24.5 mCi Tc 99m Sestamibi - Stress images obtained [address] injection FINDINGS: Review of stress and rest SPECT images demonstrates no distinct perfusion abnormality. Gated analysi s shows normal wall motion with an estimated left ventricular ejection fraction of 58 %. IMPRESSION: No scintigraphic evidence for reversible ischemia.
[2020-03-06] MEDS: ATENOLOL 50 MG TAB PO SCH (11:14)
[2020-03-06] MEDS: HEPARIN SODIUM,PORCINE 5,000 UNIT/ML 1 ML VIAL SQ SCH (11:14)
[2020-03-06] MEDS: HYDROCHLOROTHIAZIDE 25 MG TAB PO SCH (11:15)
[2020-03-06] MEDS: CLOPIDOGREL 75 MG TAB PO SCH (11:15)
[2020-03-06] MEDS: ATORVASTATIN 20 MG TAB PO SCH (11:15)
[2020-03-06 11:40] LABS: Glucose,Whole Blood 152 mg/dL (75-99)
--- NOTE | 2020-03-06 11:54 | P.STRESS ---
- Stress Test Note Stress Test Results/Findings: Exam Performed: NM stress persantine cardiolite Exam Date: 03/06/20 Reason for Exam: CP Height: 5 ft 6 in Weight: 78.8 kg Protocol: PERSANTINE CARDIOLITE Stage: NA Duration of Exercise: NA Resting Heart Rate: 51 Resting Blood Pressure: 169/72 Maximum Achieved Heart Rate: 70 Maximum Achieved Blood Pressure: 169/72 85% PMHR: 136 100% PMHR: 160 METS: NA Technologist Comment: Stress Test Results/Findings: This is a 59-year-old gentleman with history of hypertension, diabetes, and hypercholesteremia, and family history being evaluated for symptoms of chest pain. Stress data: Baseline EKG showed sinus rhythm with normal MD interval QRS duration. Blood pressure at rest was 169/72 with pulse rate of 51. A standard dose of Persantine was infused. EKGs taken during and after infusion did not reveal any significant changes from the baseline. Patient was given Aminophyllin for reversal at the end of the procedure. Final impression #1. Negative Persantine stress test #2. Report on nuclear images to be given by the radiologist
--- NOTE | 2020-03-06 11:56 | P.PN ---
Subjective Progress Note Date: 03/06/20 This is a 59-year-old gentleman who used to see Dr. MORGAN Hodge in the office, he follows now with Dr. Pinzon. Patient has a history of coronary artery disease with prior RCA and LAD stenting, most recent cardiac catheterization was performed in 2013, prior stented areas did not reveal any significant obstru ctive disease, circumflex was okay, 40% lesion noted in the OM and 40-50% in the diagonal and medical therapy was advised at that time. Patient also has a history of diabetes, hypertension, hyperlipidemia, family history of premature coronary artery disease. Patient presented to the hospital with symptoms of dizziness, he states that he was operating a high low, became quite dizzy and was experiencing tightness in his chest. He states that when he stood up off of the high low he almost passed out. Chest x-ray on presentation here showed some coarse central interstitium, no acute changes. EKG showed normal sinus rhythm with no acute changes. Magnesium on admission 1.2, 1.5 this morning, troponins negative 2. White blood cell count 7.9, hemoglobin 14.6, platelet count 226. D-dimer 0.3. Sodium 139, potassium 3.5, BUN 20, creatinine 0.86. Blood pressure 177/66, 97% on room air. Patient recently underwent right shoulder repair in October 2019. He also states that his most recent cardiac catheterization was performed at [facility] approximately a year ago, he was told to not have any significantly obstructive disease at that time. Patient was seen and examined this morning by Dr. Medrano. We will increase his lisinopril to 40 mg, give him a dose now, given 40 mg again in the morning tomorrow we will schedule the patient for a Persantine Cardiolite stress test to hills once his blood pressure is optimized. 03/06/2020 Patient underwent a Persantine Cardiolite stress test today that was negative for any reversible ischemia. Orthostatic blood pressures were obtained, 137/80 lying, 145/60 sitting, 147/70 standing, heart rate remained in the 50s throughout. Echocardiogram with Doppler study revealed a normal left ventricular systolic function. Objective - Vital Signs Vital signs: Vital Signs Temp 97.8 F 03/06/20 07:32 Pulse 50 L 03/06/20 07:32 Resp 16 03/06/20 07:32 BP 147/72 03/06/20 07:32 Pulse Ox 96 03/06/20 07:32 Intake & Output 03/05/20 03/06/20 03/06/20 18:59 06:59 18:59 Intake Total 800 0 Balance 800 0 Weight 78.8 kg 78.8 kg Intake: Intake, IV Titration 200 Amount Magnesium Sulfate-D5w Pmx 200 1 gm In Dextrose/Water 1 100ml.bag @ 100 mls/hr IVPB Q1H GEE Rx#: [id number] Oral 600 0 Other: Voiding Method Toilet # Voids 1 - Exam PHYSICAL EXAMINATION: GENERAL: 59-year-old gentleman in no acute distress at the time of examination HEENT: Head is atraumatic, normocephalic. Pupils equal, round. Sclera anicteric. Conjunctiva are clear. Mucous membranes of the mouth are moist. Neck is supple. There is no elevated jugular venous pressure. No carotid bruit is heard. HEART EXAMINATION: Heart S1, S2 normal. No murmur or gallop heard. CHEST EXAMINATION: Lungs are clear to auscultation and precussion. No chest wall tenderness is noted on palpation or with deep breathing. ABDOMEN: Soft, nontender. Bowel sounds are heard. No organomegaly noted. EXTREMITIES: 2+ peripheral pulses with no evidence of peripheral edema and no calf tenderness noted. NEUROLOGIC patient is awake, alert and oriented 3 . . - Labs CBC & Chem 7: 03/04/20 21:00 03/05/20 02:01 Labs: Abnormal Lab Results - Last 24 Hours (Table) 03/05/20 03/05/20 03/06/20 Range/Units 16:19 20:05 06:06 POC Glucose (mg/dL) 207 H 201 H 170 H (75-99) mg/dL 03/06/20 Range/Units 11:22 POC Glucose (mg/dL) 152 H (75-99) mg/dL Assessment and Plan Plan: Assessment and plan #1 symptoms of dizziness and near syncope, possibly related to accelerated hypertension #2 symptoms of chest tightness, troponins are negative 2. EKG shows normal sinus rhythm with no acute changes. #3 coronary artery disease history with prior RCA and LAD stenting #4 diabetes #5 accelerated hypertension in a patient with history of hypertension #6 hyperlipidemia #7 hypomagnesemia Plan Patient's blood pressure is under better control today, Persantine Cardiolite stress test negative for any reversible ischemia. May be discharged home from cardiology's perspective. DNP note has been reviewed, I agree with a documented findings and plan of care. Patient was seen and examined.
--- NOTE | 2020-03-06 15:05 | P.DS ---
Providers Date of admission: 03/04/20 23:13 Expected date of discharge: 03/06/20 Attending physician: Celi Monteiro MD Consults: 03/04/20 22:47 Consult Physician Urgent Consulting Provider: [facility] Consult Reason/Comments: chest pressure Do you want consulting provider notified?: Yes Primary care physician: Jose L [facility] Course: The patient is a 59-year-old male with a PMH of CAD status post 3 stents, type II DM, hypertension, and hyperlipidemia presented to the ED with complaints of sudden onset of chest discomfort and lightheadedness. Upon presentation to the ED, the patient's BP was 189/89, pulse 76, RR 20, temp 97.7, and SpO2 97% on room air. Laboratory evaluation had revealed a 60 count of 7.9, hemoglobin 14.6, platelets 226, sodium 139, potassium 4.1, BUN 26, creatinine 1.00, glucose 248, troponin less than 0.012, and a magnesium of 1.2. EKG had revealed a normal sinus rhythm at [address]/T-wave changes noted. Chest x-ray was unremarkable. Troponin was less than 0.0123 with EKG showing normal sinus rhythm and ACS was ruled out. Stress test was obtained by cardiology and was negative. Echocardiogram showed EF 60-65% with mild concentric LVH. His home medications were otherwise restarted for hypertension and dyslipidemia. He was started on insulin sliding scale for diabetes mellitus. Patient was seen and examined. He denies any chest pain, shortness of breath, palpitations or dizziness while currently at rest. Patient reports some chest discomfort during his stress test. The RN discussed this with the Cardiology FLAME CUTTING MACHINE OPERATOR, patient was cleared for discharge from a Cardiology perspective. General: [non toxic], [no distress], [appears at stated age] Derm: [warm], [dry] Head: [atraumatic], [normocephalic], [symmetric] Eyes: [EOMI], [no lid lag], [anicteric sclera] Mouth: [no lip lesion], [mucus membranes moist] Cardiovascular: [S1S2 reg], [no murmur], [positive DP pulse bilateral], Lungs: [CTA bilateral], [no rhonchi, no rales] , [no accessory muscle use] Abdominal: [soft], [ nontender to palpation], [no guarding], [no appreciable organomegaly] Ext: [no gross muscle atrophy], [no edema], [no contractures] Neuro: [no focal neuro deficits] Psych: [Alert], [oriented], [appropriate affect] Chest pain, rule out ACS -Cardiac monitoring -Cardiology consult, stress test negative, cardiology cleared the patient for discharge -Troponins less than 0.0123 with EKG showing normal sinus rhythm -Continue with aspirin and beta kathrine along with Plavix -Echocardiogram shows EF 60-65% with mild concentric LVH Type II DM with hyperglycemia -Insulin sliding scale and blood glucose monitoring along with hypoglycemic precautions Hypomagnesemia -Replace and monitor Hypertension, hyperlipidemia -Continue with home meds DVT prophylaxis -Heparin subq [Patient admitted for chest pain. Stress test negative. Follow-up with PCP within 3 days. Follow-up with primary manufacturing quality manager within 1 week.] Pertinent Studies: Chest x-ray, echocardiogram, stress test Patient Condition at Discharge: Stable Plan - Discharge Summary New Discharge Prescriptions: New Aspirin 81 mg PO DAILY #90 chew Nitroglycerin Sl Tabs [Nitrostat] 0.4 mg SUBLINGUAL Q5M PRN #14 tab PRN Reason: Chest Pain Continue Hydrochlorothiazide [Hydrodiuril] 25 mg PO DAILY Clopidogrel [Plavix] 75 mg PO DAILY Lisinopril [Prinivil] 20 mg PO DAILY Atorvastatin [Lipitor] 20 mg PO DAILY Atenolol [Tenormin] 25 mg PO DAILY Insulin Aspart Protam & Aspart [NovoLOG MIX 70-30 Flexpen] 20 unit SQ BID Discharge Medication List Clopidogrel [Plavix] 75 mg PO DAILY 07/09/14 [History] Hydrochlorothiazide [Hydrodiuril] 25 mg PO DAILY 07/09/14 [History] Lisinopril [Prinivil] 20 mg PO DAILY 07/09/14 [History] Atenolol [Tenormin] 25 mg PO DAILY 10/17/18 [History] Atorvastatin [Lipitor] 20 mg PO DAILY 10/17/18 [History] Insulin Aspart Protam & Aspart [NovoLOG MIX 70-30 Flexpen] 20 unit SQ BID 03/04/20 [History] Aspirin 81 mg PO DAILY #90 chew 03/06/20 [Rx] Nitroglycerin Sl Tabs [Nitrostat] 0.4 mg SUBLINGUAL Q5M PRN #14 tab 03/06/20 [Rx] Follow up Appointment(s)/Referral(s): Jose L Stafford MD [Primary Care Provider] - 1-2 days (2pm tuesdaymarch 07) Patient Instructions/Handouts: Chest Pain (DC) Activity/Diet/Wound Care/Special Instructions: FU with PCP within 3 days. FU with your primary Black Powder Glazing Operator within 1 week. Take all medications as advised. Come back to ED or call 911 for worsening chest pain, shortness of breath, palpitations, dizziness. Discharge Disposition: HOME SELF-CARE
== END 2020-03-06 12:21 | disposition home or self-care (01) ==
LOC: EC 20:26 → 3SCARD 23:13
PROVIDERS: ADMIT Internal Medicine; ATTEND Internal Medicine
DX: R07.89 Other chest pain (principal); R42 Dizziness and giddiness; R55 Syncope and collapse; R06.02 Shortness of breath; R00.2 Palpitations; I10 Essential (primary) hypertension; E78.5 Hyperlipidemia, unspecified; E11.65 Type 2 diabetes mellitus with hyperglycemia; E83.42 Hypomagnesemia; I25.2 Old myocardial infarction; M19.90 Unspecified osteoarthritis, unspecified site; Z20.828 Contact with and (suspected) exposure to other viral communicable diseases; I25.10 Atherosclerotic heart disease of native coronary artery without angina pectoris; Z95.5 Presence of coronary angioplasty implant and graft; Z79.02 Long term (current) use of antithrombotics/antiplatelets; Z79.899 Other long term (current) drug therapy; Z79.4 Long term (current) use of insulin; Z82.49 Family history of ischemic heart disease and other diseases of the circulatory system; Z80.9 Family history of malignant neoplasm, unspecified
CPT/HCPCS: 96365; 96366; 96372; 93005 ×3; 96361; 99285; 36415; 93017; 93306; 85379; 80061; 80053; 80048; 83735 ×2; 84484 ×2; 85025; 85610; 85730; 81003; 87635; 71046; 78452; G0378 ×3; A9500; J1644; J3475; J1245

== ENCOUNTER → 2020-11-12 | Outpatient (CLI) | payer BC ==
--- NOTE | 2020-11-12 08:40 | US ---
EXAMINATION TYPE: US renal artery duplex complete DATE OF EXAM: 11/12/2020 COMPARISON: NONE CLINICAL HISTORY: 59-year-old male I10 Renal hypertension, uncontrolled. TECHNIQUE: Multiple sonographic images of the kidneys are obtained. Color Doppler and spectral wavefo rm analysis of the renal vasculature. FINDINGS: MEASUREMENTS: RENAL SIZE: Rt Kidney: 13.3cm without hydronephrosis. Lt Kidney: not seen RESISTANCE INDEX Right: 0.74 Left: not seen RA/AO RATIO (< 3.5 ) Right: 1.7 Left: not seen RA VELOCITY ( < 180 cm/s) Right: 163 Left: not seen No evidence of renal artery stenosis. Brine Room Laborer notes: Right kidney measures large, left kidney not visualized in the left renal fossa or within the left side of the pelvis. A second hand polisher was brought in to double check. CF/LP IMPRESSION: 1. Unable to identify the left kidney. Correlate for any known diagnosis. Further cross-sectional kendall luation can be considered if this is an unexpected finding. The right kidney does measure slightly la rge and this could be due to compensatory hypertrophy. 2. No hydronephrosis on the right. No evidence for right renal artery stenosis by Doppler criteria.
[2020-11-12 08:45] LABS: Albumin 4.3 g/dL (3.5-5.0); Calcium 9.9 mg/dL (8.4-10.2); Potassium 5.2 mmol/L (3.5-5.1); Total Bilirubin 0.7 mg/dL (0.2-1.3); Total Protein 7.2 g/dL (6.3-8.2)
== END | disposition home or self-care (01) ==
LOC: RADUSWWP 07:15
PROVIDERS: ATTEND Internal Medicine
DX: N28.81 Hypertrophy of kidney (principal); I10 Essential (primary) hypertension; E11.9 Type 2 diabetes mellitus without complications
CPT/HCPCS: 80053; 82088; 83036; 84244; 93975

== ENCOUNTER 2022-11-04 11:14 | Emergency (ER) | payer BC ==
--- NOTE | 2022-11-04 11:39 | ED ---
URI HPI <Magali Merlos - Last Filed: 11/04/22 11:35> <Fly Hines - Last Filed: 11/04/22 15:47> <Bernice Personah Emigdio - Last Filed: 11/14/22 01:25> - General Stated Complaint: chest cold Time Seen by Provider: 11/04/22 15:05 - History of Present Illness Initial Comments: Patient is a 61-year-old male presenting to the emergency room with complaints of sore throat, headache, cough and congestion ongoing for approximately 1 week along with increase in chronic pain. He reports fevers and chills but does not have a thermometer so is unsure how highest admission was. Patient had one Covid vaccination approximately 1 year ago he is vaccinated for flu. He denies any known exposure for COVID or influenza. He was evaluated at urgent care earlier in the week and a Z-Bradly . He is currently on day 3 and reports no improvement in symptoms. He denies any abdominal pain, nausea, vomiting or diarrhea. (Magali Merlos) This is a 61-year-old male who presents emergency Department with bending of coughing for at least one week. Patient states he doesn't normally get short of breath Walking up steps and coughing. Patient states he has had a headache and some sore throat but he also complains of generalized body aches. Patient states today he started coughing and he had a little bit of blood come up so he decided to come into the emergency department. Patient states started been to the urgent care couple of days ago and started on a Z-Bradly but that is not helped his symptoms at all. Patient states he has had a fever in the past but didn't feel hot today. Patient denies any chest pain or palpitations. Patient denies any upper back pain. Patient denies any lightheadedness dizziness or near syn copal episode patient denies any leg swelling or calf tenderness. (Fly Hines) - Related Data Home Medications Medication Instructions Recorded Confirmed Clopidogrel [Plavix] 75 mg PO DAILY 07/09/14 11/04/22 Atorvastatin [Lipitor] 20 mg PO DAILY 10/17/18 11/04/22 Insulin Aspart Prot/Insuln Asp 22 unit SQ BID 03/04/20 11/04/22 [NovoLOG MIX 70-30 Flexpen] Azithromycin [Zithromax Z Pack] See Taper PO DIRECTED 11/04/22 11/04/22 lisinopriL [Zestril] 40 mg PO DAILY 11/04/22 11/04/22 Previous Rx's Medication Instructions Recorded Nitroglycerin Sl Tabs [Nitrostat] 0.4 mg SUBLINGUAL Q5M PRN #14 tab 03/06/20 Codeine Phosphate/Guaifenesin 10 ml PO Q6H 3 Days #120 ml 11/04/22 [Codeine Phosphate/Guaifenesin 10-100 mg/5 ml] Insulin Aspart Prot/Insuln Asp 24 unit SQ BID #10 each 11/04/22 [Novolog Mix 70-30 Flexpen] Allergies Allergy/AdvReac Type Severity Reaction Status Date / Time No Known Allergies Allergy Verified 11/04/22 15:29 Review of Systems ROS Other: All systems not noted in ROS Statement are negative. <Magali Merlos - Last Filed: 11/04/22 11:35> ROS Other: All systems not noted in ROS Statement are negative. <Fly Hines - Last Filed: 11/04/22 15:47> ROS Other: All systems not noted in ROS Statement are negative. <Reba Person - Last Filed: 11/14/22 01:25> ROS Statement: Those systems with pertinent positive or pertinent negative responses have been documented in the HPI. 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 Patient is nontoxic and well- hydrated and is in mild distress. ENT: Neck is soft and supple. No significant lymphadenopathy is noted. Oropharynx is clear. Moist mucous membranes. Neck has full range of motion without eliciting any pain. EYES: The sclera were anicteric and conjunctiva were pink and moist. Extraocular movements were intact and pupils were equal round and reactive to light. Eyelids were unremarkable. PULMONARY: Unlabored respirations. Good breath sounds bilaterally. No audible rales rhonchi or wheezing was noted. CARDIOVASCULAR: There is a regular rate and rhythm without any murmurs gallops or rubs. ABDOMEN: Soft and nontender with normal bowel sounds. SKIN: Skin is clear with no lesions or rashes and otherwise unremarkable. NEUROLOGIC: Patient is alert and oriented x3. Cranial nerves II through XII are grossly intact. Motor and sensory are also intact. Normal speech, volume and content. Symmetrical smile. MUSCULOSKELETAL: Normal extremities with adequate strength and full range of motion. No lower extremity swelling or edema. No calf tenderness. LYMPHATICS: No significant lymphadenopathy is noted PSYCHIATRIC: Normal psychiatric evaluation. (Fly Hines) Course Vital Signs 11/04/22 11/04/22 11/04/22 11:35 13:30 14:43 Temperature 98.1 F 99.4 F Pulse Rate 80 74 Respiratory 16 18 18 Rate Blood Pressure 156/87 116/75 O2 Sat by Pulse 98 95 Oximetry 11/04/22 11/04/22 19:33 20:40 Temperature 99.8 F H 98.2 F Pulse Rate 70 72 Respiratory 18 17 Rate Blood Pressure 151/79 141/80 O2 Sat by Pulse 97 97 Oximetry Medical Decision Making - Lab Data Result diagrams: 11/04/22 14:02 11/04/22 14:02 <Fly Hines - Last Filed: 11/04/22 15:47> - Lab Data Result diagrams: 11/04/22 14:02 11/04/22 14:02 <Reba Person - Last Filed: 11/14/22 01:25> - Medical Decision Making came back and was very concerned about his heart because she's had a stent before even though the patient came in complaining of cough and fever he did have some back pain starting 3 days ago and she asked if a cardiac workup could be done. EKG was interpreted by myself shows a sinus rhythm at 71 bpm KS interval 149 QRSs 88 QT interval 370 QTC is 394. Patient's EKG shows no ST segment elevation or depression. Was pt. sent in by a medical professional or institution ([facility], SHIRRER, urgent care, hospital, or senior care...) When possible be specific @ -No Did you speak to anyone other than the patient for history (EMS, parent, family, police, friend...)? What history was obtained from this source @ - gave some past medical history that he did not give us. Did you review nursing and triage notes (agree or disagree)? Why? @ -I reviewed and agree with nursing and triage notes Were old charts reviewed (outside hosp., previous admission, EMS record, old EKG, old radiological studies, urgent care reports/EKG's, senior care records)? Report findings @ -No old charts were reviewed Differential Diagnosis (chest pain, altered mental status, abdominal pain women, abdominal pain men, vaginal bleeding, weakness, fever, dyspnea, syncope, headache, dizziness, GI bleed, back pain, seizure, CVA, palpatations, mental health)? @ -Pneumonia, bronchitis, COVID, influenza, RSV, pulmonary embolism is is not all inclusive list EKG interpreted by me (3pts min.). @ -As above X-rays interpreted by me (1pt min.). @ -Chest x-rays interpreted by myself. Chest x-ray showed no acute normalities. CT interpreted by me (1pt min.). @ -None done U/S interpreted by me (1pt. min.). @ -None done What testing was considered but not performed or refused? (CT, X-rays, U/S, labs)? Why? @ -I considered doing a CAT scan of the chest however the patient's d-dimer is not elevated he is not having any pain currently and his main complaint was fever and cough What meds were considered but not given or refused? Why? @ -None Did you discuss the management of the patient with other professionals (professionals i.e. [facility] Paul, SHIRRER, lab, RT, psych nurse, 7th grade social studies teacher, photo technologist, teacher, motor equipment commanding officer, pillowcase sewer)? Give summary @ -No Was smoking cessation discussed for >3mins.? @ -No Was critical care preformed (if so, how long)? @ -No Were there social determinants of health that impacted care today? How? (Homelessness, low income, unemployed, alcoholism, drug addiction, transportation, low edu. Level, literacy, decrease access to med. care, [facility], rehab)? @ -No Was there de-escalation of care discussed even if they declined (Discuss DNR or withdrawal of care, Hospice)? DNR status @ -No What co-morbidities impacted this encounter? (DM, HTN, Smoking, COPD, CAD, Cancer, CVA, ARF, Chemo, Hep., AIDS, mental health diagnosis, sleep apnea, morbid obesity)? @ -Patient has diabetes hypertension and history of coronary artery disease so more extensive workup was done secondary to these comorbidities Dr. Doyle will be taking over the care of this patient at 3:30 PM (Marta Hines) Was patient admitted / discharged? @ -I took over care of the patient. He had been evaluated in the emergency department. IV was established. Laboratory studies were conducted. Patient had a viral swab performed as well as a chest x-ray. Upon return results the patient's did present to the emergency department requesting troponin testing. Troponin was added on. Results of the troponin were discussed with the patient. They were marginally elevated at 0.038. Because of this I did discuss the suggested treatment plan of admission with serial troponins however patient's did not want remain hospitalized. I was able to convince the patient into drawing a second set of laboratory studies before the patient was discharged. Second troponin does come back and is within normal limits. Patient would prefer to follow up with his senior controls engineer for the remainder of his workup. He is requesting something for cough. Patient given a prescription for codeine cough syrup. He is to follow-up with his doctor in 1-2 days and return for any new or worsening symptoms. Patient agreeable to this plan he was discharged home stable condition Undiagnosed new problem with uncertain prognosis? yes Drug Therapy requiring intensive monitoring for toxicity (Heparin, Nitro, Insulin, Cardizem)? no Were any procedures done? none Diagnosis/symptom? acute upper resp infection Acute, or Chronic, or Acute on Chronic? acute Uncomplicated (without systemic symptoms) or Complicated (systemic symptoms)? complicated Side effects of treatment? sedation from morphine Exacerbation, Progression, or Severe Exacerbation] no Poses a threat to life or bodily function? yes (Bernice Personah Emigdio) - Lab Data Lab Results 11/04/22 11/04/22 11/04/22 Range/Units 12:00 14:02 14:02 WBC 4.2 (3.8-10.6) k/uL RBC 5.09 (4.30-5.90) m/uL Hgb 16.0 (13.0-17.5) gm/dL Hct 45.6 (39.0-53.0) % MCV 89.6 (80.0-100.0) fL MCH 31.5 (25.0-35.0) pg MCHC 35.2 (31.0-37.0) g/dL RDW 12.5 (11.5-15.5) % Plt Count 201 (150-450) k/uL MPV 7.8 Neutrophils % 57 % Lymphocytes % 30 % Monocytes % 8 % Eosinophils % 1 % Basophils % 1 % Neutrophils # 2.4 (1.3-7.7) k/uL Lymphocytes # 1.3 (1.0-4.8) k/uL Monocytes # 0.3 (0-1.0) k/uL Eosinophils # 0.0 (0-0.7) k/uL Basophils # 0.0 (0-0.2) k/uL D-Dimer 0.55 (<0.60) mg/L FEU Sodium (137-145) mmol/L Potassium (3.5-5.1) mmol/L Chloride (98-107) mmol/L Carbon Dioxide (22-30) mmol/L Anion Gap mmol/L BUN (9-20) mg/dL Creatinine (0.66-1.25) mg/dL Est GFR (CKD-EPI)AfAm (>60 ml/min/1.73 sqM) Est GFR (CKD-EPI)NonAf (>60 ml/min/1.73 sqM) Glucose (74-99) mg/dL Calcium (8.4-10.2) mg/dL Total Bilirubin (0.2-1.3) mg/dL AST (17-59) U/L ALT (4-49) U/L Alkaline Phosphatase (38-126) U/L Troponin I (0.000-0.034) ng/mL Total Protein (6.3-8.2) g/dL Albumin (3.5-5.0) g/dL Influenza Type A (PCR) Not Detected (Not Detectd) Influenza Type B (PCR) Not Detected (Not Detectd) RSV (PCR) Not Detected (Not Detectd) SARS-CoV-2 (PCR) Not Detected (Not Detectd) 11/04/22 11/04/22 11/04/22 Range/Units 14:02 15:50 19:05 WBC (3.8-10.6) k/uL RBC (4.30-5.90) m/uL Hgb (13.0-17.5) gm/dL Hct (39.0-53.0) % MCV (80.0-100.0) fL MCH (25.0-35.0) pg MCHC (31.0-37.0) g/dL RDW (11.5-15.5) % Plt Count (150-450) k/uL MPV Neutrophils % % Lymphocytes % % Monocytes % % Eosinophils % % Basophils % % Neutrophils # (1.3-7.7) k/uL Lymphocytes # (1.0-4.8) k/uL Monocytes # (0-1.0) k/uL Eosinophils # (0-0.7) k/uL Basophils # (0-0.2) k/uL D-Dimer (<0.60) mg/L FEU Sodium 139 (137-145) mmol/L Potassium 4.1 (3.5-5.1) mmol/L Chloride 105 (98-107) mmol/L Carbon Dioxide 25 (22-30) mmol/L Anion Gap 9 mmol/L BUN 22 H (9-20) mg/dL Creatinine 1.23 (0.66-1.25) mg/dL Est GFR (CKD-EPI)AfAm 73 (>60 ml/min/1.73 sqM) Est GFR (CKD-EPI)NonAf 63 (>60 ml/min/1.73 sqM) Glucose 163 H (74-99) mg/dL Calcium 9.3 (8.4-10.2) mg/dL Total Bilirubin 0.6 (0.2-1.3) mg/dL AST 40 (17-59) U/L ALT 39 (4-49) U/L Alkaline Phosphatase 100 (38-126) U/L Troponin I 0.038 H* 0.032 (0.000-0.034) ng/mL Total Protein 7.6 (6.3-8.2) g/dL Albumin 4.4 (3.5-5.0) g/dL Influenza Type A (PCR) (Not Detectd) Influenza Type B (PCR) (Not Detectd) RSV (PCR) (Not Detectd) SARS-CoV-2 (PCR) (Not Detectd) Disposition <Magali Merlos - Last Filed: 11/04/22 11:35> <Fly Hines - Last Filed: 11/04/22 15:47> Is patient prescribed a controlled substance at d/c from ED?: Yes When asked, does pt state using other controlled substances?: No If prescribed controlled substance>3 days was MAPS reviewed?: Prescribed <3 Days Time of Disposition: 20:39 <Reba Person - Last Filed: 11/14/22 01:25> Clinical Impression: Cough, Elevated troponin Disposition: HOME SELF-CARE Condition: Stable Instructions (If sedation given, give patient instructions): Upper Respiratory Infection (ED) Additional Instructions: Please alternate taking Motrin and Tylenol every 4 hours as needed for fever. See your doctor in 1-2 days. Take the cough syrup for cough and return for any new or worsening symptoms Prescriptions: Codeine Phosphate/Guaifenesin [Codeine Phosphate/Guaifenesin 10-100 mg/5 ml] 10 ml PO Q6H 3 Days #120 ml Insulin Aspart Prot/Insuln Asp [Novolog Mix 70-30 Flexpen] 24 unit SQ BID #10 each Referrals: None,Stated [Primary Care Provider] - 1-2 days
--- NOTE | 2022-11-04 13:45 | XR ---
EXAMINATION TYPE: XR chest 2V DATE OF EXAM: 11/04/2022 1:40 PM COMPARISON: Chest radiographs from 03/04/2020 TECHNIQUE: XR chest 2V Frontal and lateral views of the chest. CLINICAL INDICATION:Male, 61 years old with history of Difficulty breathing ; FINDINGS: Lungs/Pleura: There is no evidence of pleural effusion, focal consolidation, or pneumothorax. Pulmonary vascularity: Unremarkable. Heart/mediastinum: Cardiomediastinal silhouette is unremarkable. Musculoskeletal: No acute osseous pathology. IMPRESSION: No acute cardiopulmonary disease/process.
[2022-11-04 14:39] LABS: Basophils % (A) 1 %; Eosinophils % (A) 1 %; HCT 45.6 % (39.0-53.0); Lymphocytes # (A) 1.3 k/uL (1.0-4.8); Lymphocytes % (A) 30 %; MCH 31.5 pg (25.0-35.0); MCHC 35.2 g/dL (31.0-37.0); MCV 89.6 fL (80.0-100.0); Mean Platelet Volume 7.8; Monocytes # (A) 0.3 k/uL (0-1.0); Monocytes % (A) 8 %; Neutrophils # (A) 2.4 k/uL (1.3-7.7); Neutrophils % (A) 57 %; Platelet Count 201 k/uL (150-450); RBC 5.09 m/uL (4.30-5.90); RDW 12.5 % (11.5-15.5); WBC 4.2 k/uL (3.8-10.6)
[2022-11-04 15:18] LABS: Albumin 4.4 g/dL (3.5-5.0); Calcium 9.3 mg/dL (8.4-10.2); Potassium 4.1 mmol/L (3.5-5.1); Total Bilirubin 0.6 mg/dL (0.2-1.3); Total Protein 7.6 g/dL (6.3-8.2)
[2022-11-04] MEDS ORDERED: MORPHINE SULFATE 4 MG/ML SYRINGE IVP STA (19:24)
[2022-11-04] MEDS ORDERED: ACETAMINOPHEN TAB 500 MG TAB PO STA (19:35)
[2022-11-04] MEDS ORDERED: ACET/COD 300 MG/30 MG STARTER PACK 6 TAB BTL PO STA (20:33)
[2022-11-04 20:40] VITALS: BP 141/80; PULSE 72; RESP 17; TEMP 98.2
== END 2022-11-04 20:44 | disposition home or self-care (01) ==
LOC: EC 11:14
DX: R05.9 Cough, unspecified (principal); R77.8 Other specified abnormalities of plasma proteins; E11.9 Type 2 diabetes mellitus without complications; E78.5 Hyperlipidemia, unspecified; I10 Essential (primary) hypertension; M19.90 Unspecified osteoarthritis, unspecified site; Z79.4 Long term (current) use of insulin; Z79.899 Other long term (current) drug therapy; Z20.822 Contact with and (suspected) exposure to COVID-19
CPT/HCPCS: 36415; 93005; 85379; 80053; 84484; 85025; 87636; 71046; 99284; 96374; J2270

== ENCOUNTER 2023-05-10 08:50 | Day surgery (SDC) | payer BC ==
[~2023-05-10 08:50] MED LIST changes: -DEXAMETHASONE SOD PHOSPHATE 10 MG/ML 1 ML VIAL IV ONE; -HYDROmorphone 0.5 MG/0.5 ML SYRINGE IVP PRN; -LACTATED RINGERS 1,000 ML IV SCH; +LIDOCAINE 1% (10MG/ML) FOR IV START INTRADERMA PRN; -MIDAZOLAM 2 MG/2 ML VIAL IV PRN; -ONDANSETRON 4 MG/2 ML VIAL IVP ONE; -SCOPOLAMINE 1.5MG/72HR PATCH TRANSDERM ONE
[2023-05-10 09:45] VITALS: RESP 16; TEMP 97.2
[2023-05-10] MEDS: LACTATED RINGERS 1,000 ML IV SCH ×2 (09:56→10:27)
[2023-05-10 10:00] LABS: Glucose,Whole Blood 62 mg/dL (70-110)
[2023-05-10] MEDS ORDERED: DEXTROSE 5% IN WATER 50 ML BAG IVPB ONE (10:00)
[2023-05-10 10:28] LABS: Glucose,Whole Blood 118 mg/dL (70-110)
[2023-05-10] MEDS ORDERED: PROPOFOL 10 MG/ML 20 ML VIAL IV ONE (10:33)
--- NOTE | 2023-05-10 10:50 | P.PCN ---
Date of Procedure: 05/10/23 Procedure(s) Performed: BRIEF HISTORY: Patient is a 62-year-old pleasant white male scheduled for an elective colonoscopy as a part of screening for colon cancer. PROCEDURE PERFORMED: Colonoscopy. PREOPERATIVE DIAGNOSIS: Screening for colon cancer. IV sedation per Anesthesia. PROCEDURE: After informed consent was obtained, the patient, was brought into the endoscopy unit. IV sedation was administered by Anesthesia under continuous monitoring. Digital rectal examination was normal. Initially the Olympus CF-160 flexible video colonoscope was then inserted in the rectum, gradually advanced into the cecum without any difficulty. Careful examination was performed as the scope was gradually being withdrawn. Ileocecal valve and the appendiceal orifice were visualized and appeared normal. Prep was excellent. Mucosa of the cecum, ascending colon, transverse colon, descending colon, sigmoid colon, and rectum appeared normal. Retroflexion was performed in the rectum and no lesions were seen. The patient tolerated the procedure well. IMPRESSION: Normal-appearing colon from rectum to cecum with no evidence of colorectal neoplasia . RECOMMENDATIONS: Findings of this examination were discussed with the patient as well as his family. He was advised to have a repeat screening colonoscopy in 10 years..
[2023-05-10 11:15] VITALS: BP 120/74; PULSE 55
[2023-05-10 11:23] LABS: Glucose,Whole Blood 109 mg/dL (70-110)
== END 2023-05-10 11:25 | disposition home or self-care (01) ==
LOC: ORWHC2ENDO 08:50
PROVIDERS: ATTEND Internal Medicine Gastroenterology
DX: Z12.11 Encounter for screening for malignant neoplasm of colon (principal); I25.10 Atherosclerotic heart disease of native coronary artery without angina pectoris; I10 Essential (primary) hypertension; E78.5 Hyperlipidemia, unspecified; M19.90 Unspecified osteoarthritis, unspecified site; Z79.899 Other long term (current) drug therapy
CPT/HCPCS: 45378; J2704

== ENCOUNTER 2024-10-13 19:10 | Emergency (ER) | payer BC ==
[2024-10-13 19:31] VITALS: RESP 18
--- NOTE | 2024-10-13 20:02 | ED ---
URI HPI - General Chief Complaint: Upper Respiratory Infection Stated Complaint: Sore Throat/Covid + Time Seen by Provider: 10/13/24 19:26 Source: patient, RN notes reviewed Mode of arrival: ambulatory Limitations: no limitations - History of Present Illness Initial Comments: This is a 63-year-old male with history of DM2 and CAD presenting with for sick symptoms x 2 days. Patient Dors is going to urgent care where he was diagnosed with COVID-19 and prescribed an antiviral medication specifically for COVID. States he is unable to find a medication that any pharmacy. Endorses use of blood thinners, precluding him from receiving Paxlovid. Endorses fever, body aches, dry cough and sore throat (8/10). Endorses recent sick contact with [id number] who was diagnosed with COVID. Patient denies chills, fatigue, chest pain, dyspnea, nasal congestion, abdominal pain, N/V/D. MD Complaint: fever, cough, sore throat Onset/Timin -: days(s) Severity scale (1-10): 8 Consistency: constant Improves With: nothing Worsens With: nothing Context: sick contacts Associated Symptoms: myalgias Treatments Prior to Arrival: "cold medicine" - Related Data Home Medications Medication Instructions Recorded Confirmed Atorvastatin [Lipitor] 20 mg PO QAM 10/17/18 05/10/23 lisinopriL [Zestril] 40 mg PO QAM 11/04/22 05/10/23 Tirzepatide [Mounjaro] 2.5 mg SQ WE 05/04/23 05/10/23 amLODIPine [Norvasc] 5 mg PO QAM 05/04/23 05/10/23 atenoloL [Tenormin] 50 mg PO QAM 05/04/23 05/10/23 Previous Rx's Medication Instructions Recorded Nitroglycerin Sl Tabs [Nitrostat] 0.4 mg SUBLINGUAL Q5M PRN #14 tab 03/06/20 Allergies Allergy/AdvReac Type Severity Reaction Status Date / Time No Known Allergies Allergy Verified 10/13/24 19:30 Review of Systems ROS Statement: Those systems with pertinent positive or pertinent negative responses have been documented in the HPI. ROS Other: All systems not noted in ROS Statement are negative. Past Medical History Past Medical History: Chest Pain / Angina, Diabetes Mellitus, Hyperlipidemia, Hypertension, Osteoarthritis (OA) Additional Past Medical History / Comment(s): Routine screening. 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 Past Anesthesia/Blood Transfusion Reactions: No Reported Reaction Additional Past Anesthesia/Blood Transfusion Reaction / Comment(s): Pt has never received blood. Date of Last Stent Placement:: 2012 Past Psychological History: No Psychological Hx Reported Smoking Status: Never smoker Past Alcohol Use History: Rare Past Drug Use History: None Reported - Past Family History Sister(s) Family Medical History: Cancer General Exam Limitations: no limitations General appearance: alert, in no apparent distress Head exam: Present: atraumatic, normocephalic, normal inspection Eye exam: Present: normal appearance, PERRL, EOMI. Absent: scleral icterus, conjunctival injection, periorbital swelling ENT exam: Present: normal exam, mucous membranes moist Neck exam: Present: normal inspection, tenderness (Right neck tenderness). Absent: meningismus, lymphadenopathy Respiratory exam: Present: decreased breath sounds. Absent: respiratory distress, wheezes, rales, rhonchi, stridor Cardiovascular Exam: Present: regular rate, normal rhythm, normal heart sounds. Absent: systolic murmur, diastolic murmur, rubs, gallop, clicks GI/Abdominal exam: Present: soft, normal bowel sounds. Absent: distended, tenderness, guarding, rebound, rigid Extremities exam: Present: normal inspection, full ROM, normal capillary refill. Absent: tenderness, pedal edema, joint swelling, calf tenderness Back exam: Present: normal inspection Neurological exam: Present: alert, oriented X3, CN II-XII intact Psychiatric exam: Present: normal affect, normal mood Skin exam: Present: warm, dry, intact, normal color. Absent: rash Course Vital Signs 10/13/24 19:25 Temperature 99.4 F Pulse Rate 80 Respiratory 18 Rate Blood Pressure 145/83 O2 Sat by Pulse 98 Oximetry Medical Decision Making - Medical Decision Making Was pt. sent in by a medical professional or institution (, PA, SALES REPRESENTATIVE ADDING MACHINES, urgent care, hospital, or shelter...) When possible be specific @ -[No] Did you speak to anyone other than the patient for history (EMS, parent, family, police, friend...)? What history was obtained from this source @ -[No] Did you review nursing and triage notes (agree or disagree)? Why? @ -[I reviewed and agree with nursing and triage notes] Were old charts reviewed (outside hosp., previous admission, EMS record, old EKG, old radiological studies, urgent care reports/EKG's, shelter records)? Report findings @ -[No old charts were reviewed] Differential Diagnosis (chest pain, altered mental status, abdominal pain women, abdominal pain men, vaginal bleeding, weakness, fever, dyspnea, syncope, headache, dizziness, GI bleed, back pain, seizure, CVA, palpatations, mental health, musculoskeletal)? @ -Differential Fever: Pneumonia, viral URI, endocarditis, myocarditis, pericarditis, otitis, sinusitis, peritonsillar Abscess, retropharyngeal Abscess, epiglottitis, peritonitis, appendicitis, Rain cystitis, diverticulitis, hepatitis, colitis, UTI, PID, TOA, pyelonephritis, prostatitis, epididymitis, meningitis, encephalitis, pulmonary embolism, CVA, thyroid storm, pancreatitis, adrenal crisis, cavernous sinus thrombosis, this is not meant to be an all-inclusive list. EKG interpreted by me (3pts min.). @ -Not done X-rays interpreted by me (1pt min.). @ -[None done] CT interpreted by me (1pt min.). @ -[None done] U/S interpreted by me (1pt. min.). @ -[None done] What testing was considered but not performed or refused? (CT, X-rays, U/S, labs )? Why? @ -[None] What meds were considered but not given or refused? Why? @ -[None] Did you discuss the management of the patient with other professionals (professionals i.e. , PA, SALES REPRESENTATIVE ADDING MACHINES, lab, RT, psych nurse, rn social work, evening sitter, teacher, supply requirements officer, pillowcase cleaner)? Give summary @ -[No] Was smoking cessation discussed for >3mins.? @ -[No] Was critical care preformed (if so, how long)? @ -[No] Were there social determinants of health that impacted care today? How? (Homelessness, low income, unemployed, alcoholism, drug addiction, transportation, low edu. Level, literacy, decrease access to med. care, snf, rehab)? @ -[No] Was there de-escalation of care discussed even if they declined (Discuss DNR or withdrawal of care, Hospice)? DNR status @ -[No] What co-morbidities impacted this encounter? (DM, HTN, Smoking, COPD, CAD, Cancer, CVA, ARF, Chemo, Hep., AIDS, mental health diagnosis, sleep apnea, morbid obesity)? @ -[None] Was patient admitted / discharged? Hospital course, mention meds given and route, prescriptions, significant lab abnormalities, going to OR and other pertinent info. @ -[hospital course] Undiagnosed new problem with uncertain prognosis? @ -[No] Drug Therapy requiring intensive monitoring for toxicity (Heparin, Nitro, Insulin, Cardizem)? @ -[No] Were any procedures done? @ -[No] Diagnosis/symptom? @ -[default] Acute, or Chronic, or Acute on Chronic? @ -Acute Uncomplicated (without systemic symptoms) or Complicated (systemic symptoms)? @ -Complicated Side effects of treatment? @ -[No] Exacerbation, Progression, or Severe Exacerbation? @ -[No] Poses a threat to life or bodily function? How? (Chest pain, [place], [place], pneumonia, PE, COPD, DKA, ARF, appy, cholecystitis, CVA, Diverticulitis, Homicidal, Suicidal, threat to staff... and all critical care pts) @ -[No] - Lab Data Lab Results 10/13/24 10/13/24 Range/Units 20:00 20:00 Influenza Type A (PCR) Not Detected (Not Detectd) Influenza Type B (PCR) Not Detected (Not Detectd) RSV (PCR) Not Detected (Not Detectd) SARS-CoV-2 (PCR) Detected A (Not Detectd) Group A Strep (PCR) NOT DETECTED (Not Detectd) Disposition Clinical Impression: COVID-19 Disposition: HOME SELF-CARE Condition: Good Instructions (If sedation given, give patient instructions): COVID-19 (Coronavirus Disease 2019) (ED) Is patient prescribed a controlled substance at d/c from ED?: No Referrals: Fly Montana MD [Primary Care Provider] - 1-2 days Time of Disposition: 21:15
--- NOTE | 2024-10-13 20:06 | XR ---
EXAMINATION TYPE: XR chest 2V DATE OF EXAM: 10/13/2024 7:59 PM COMPARISON: Previous chest radiograph dated 11/04/2022. CLINICAL INDICATION: Male, 63 years old with history of Cough; H TECHNIQUE: XR chest 2V Frontal and lateral views of the chest. FINDINGS: Lungs/Pleura: There is no evidence of pleural effusion, focal consolidation, or pneumothorax. Pulmonary vascularity: Unremarkable. Heart/mediastinum: Cardiomediastinal silhouette is unremarkable. Atrial septal occlusion device note d. Median sternotomy wires. Musculoskeletal: No acute osseous pathology. Other findings: None IMPRESSION: No acute cardiopulmonary disease/process. [facility], , 10/13/2024 8:03 PM
[2024-10-13] MEDS: MAG HYDROX/AL HYDROX/SIMETH 30 ML, diphenhydrAMINE ELIXIR 75 MG, LIDOCAINE VISCOUS 2% 3... PO SCH (21:31)
[2024-10-13 21:36] VITALS: BP 145/82; PULSE 79; TEMP 97.9
== END 2024-10-13 21:36 | disposition home or self-care (01) ==
LOC: EC 19:10
DX: U07.1 COVID-19 (principal)
CPT/HCPCS: 71046; 87636; 87651; 99283